=== PATIENT | female | born 1940 | race Caucasian/White ===

== ENCOUNTER 2020-11-15 13:57 | Outpatient (CLI) | payer MEDICARE, SELFPAY | END 2020-11-15 13:58 | disposition home or self-care (01) | LOC: ANHCOVIDVC 13:57 | DX: Z23 Encounter for immunization (principal) | CPT/HCPCS: 0001A; 91300 ==

== ENCOUNTER 2020-12-06 14:04 | Outpatient (CLI) | payer MEDICARE, SELFPAY | END 2020-12-06 14:05 | disposition home or self-care (01) | LOC: ANHCOVIDVC 14:04 | DX: Z23 Encounter for immunization (principal) | CPT/HCPCS: 0002A; 91300 ==

== ENCOUNTER 2021-02-17 20:41 | Inpatient (IN) | payer MEDICARE, SELFPAY ==
--- NOTE | ~2021-02-17 | CT_ITS ---
EXAMINATION: CT abdomen pelvis w con DATE: 02/20/2021 13:06 INDICATION: Diarrhea. Sepsis. TECHNIQUE: Computed tomography (CT) of the abdomen and pelvis was performed with 100 mL Omnipaque 350 intravenous contrast. Automated exposure control and iterative reconstruction technique were employe d. The dose-length product was 1109.87 mGy-cm. COMPARISON: CT abdomen and pelvis 07/02/2009 FINDINGS: The visualized portions of the lung bases demonstrate mild atelectasis. Calcified right valentino g nodules are consistent with old granulomatous disease. There are small pleural effusions. There is biatrial enlargement of the heart. No pericardial effusion. There are coronary artery calcifications. There is diffuse hepatic steatosis. There are changes of cholecystectomy. The spleen is normal. Ther e is an 11 mm cystic lesion in the body of pancreas. The pancreatic duct is mildly dilated. The adren al glands are normal. There are cysts in the kidneys measuring up to 8 mm on the left. There is diver ticulosis of the colon without evidence of diverticulitis. There are changes of ileocolic resection. There are two supraumbilical ventral hernias containing fat. There are no pathologically enlarged lym ph nodes. There is no free intraperitoneal fluid. There is a total right hip arthroplasty. There are chronic bilateral L5 pars defects. There is 8 mm anterolisthesis of L5 on S1. There is severe lower l umbar spondylosis. IMPRESSION: 1. Small pleural effusions. 2. 11 mm cystic lesion in the body of the pancreas, new from 07/02/09. The differential diagnosis inc ludes pseudocyst, intraductal papillary mucinous neoplasm (IPMN), mucinous cystic neoplasm (MCN), ser ous cystadenoma, and neuroendocrine tumor. Consider abdomen MRI without and with contrast in 2 years. Reviewed, dictated and finalized at location A. IMPRESSION: 1. Small pleural effusions. 2. 11 mm cystic lesion in the body of the pancreas, new from 07/02/09. The diff erential diagnosis includes pseudocyst, intraductal papillary mucinous neoplasm (IPMN), mucinous cystic neoplasm (MCN), serous cystadenoma, and neuroendocrine tumor. Consider abdomen MRI without and with contrast in 2 years.
--- NOTE | ~2021-02-17 | CT_ITS ---
EXAMINATION: CTA chest PE protocol DATE: 02/18/2021 00:54 INDICATION: Chest pain TECHNIQUE: Computed tomography (CT) pulmonary angiogram of the chest was performed with 100 mL Omnipa que-350 intravenous contrast. Additional 3D reconstructions utilizing coronal maximum intensity proje ction (MIP) were performed. Automated exposure control and iterative reconstruction technique were em ployed. The dose-length product was 2420.93 mGy-cm. COMPARISON: None FINDINGS: Good but suboptimal contrast opacification of the pulmonary arteries. Moderate to severe scattered re spiratory motion artifact most prominent at the apices and lung bases. Overall this decreases sensiti vity in the segmental pulmonary arteries and rendered is assessment in some of the smaller more perip heral subsegmental pulmonary arteries nondiagnostic. No . Pulmonary embolism identified. Mild depende nt atelectasis in the bilateral lower lobes. There are multiple <4 mm pulmonary nodules scattered thr oughout both lungs which appear primarily centrilobular and with peripheral predominance. Calcified n odule at the right lung base consistent with old granulomatous disease. No pulmonary edema, pleural e ffusion or pneumothorax. Cardiomegaly. Atherosclerotic coronary artery calcification is. No pericardi al effusion. Thoracic aorta is normal in caliber with no dissection. Unchanged mild enlargement of th e central pulmonary arteries consistent with pulmonary arterial hypertension. There is a dilated azyg os vein which can be seen with elevated right heart pressures. No pathologically enlarged thoracic ly mphadenopathy. Small sliding-type hiatal hernia. Cholecystectomy clips at the gallbladder fossa. Diff use hepatic steatosis. Mild thoracic dextrocurvature with mild spondylosis. IMPRESSION: 1. No pulmonary embolism with sensitivity decreased in the segmental and more central subsegmental pu lmonary arteries and essentially nondiagnostic in the smaller more peripheral subsegmental pulmonary arteries due primarily to respiratory motion artifact. 2. Numerous small centrilobular nodules of indeterminate chronicity scattered throughout both lungs w hich are most likely infectious or inflammatory in etiology. Would also include metastatic disease in the differential if there is been history of prior malignancy. 3. Cardiomegaly with unchanged enlargement of the central pulmonary arteries consistent with pulmonar y arterial hypertension. 4. Small sliding-type hiatal hernia.. Reviewed, dictated and finalized at location A. IMPRESSION: 1. No pulmonary embolism with sensitivity decreased in the segmental and more c entral subsegmental pulmonary arteries and essentially nondiagnostic in the sma ller more peripheral subsegmental pulmonary arteries due primarily to respirato ry motion artifact. 2. Numerous small centrilobular nodules of indeterminate chronicity scattered t hroughout both lungs which are most likely infectious or inflammatory in etiolo gy. Would also include metastatic disease in the differential if there is been history of prior malignancy. 3. Cardiomegaly with unchanged enlargement of the central pulmonary arteries co nsistent with pulmonary arterial hypertension. 4. Small sliding-type hiatal hernia..
--- NOTE | ~2021-02-17 | XR_ITS ---
EXAMINATION: XR chest 1V portable INDICATION: Leukocytosis and shortness of breath TECHNIQUE: Portable AP chest at 0803 hours COMPARISON: 02/18/2021 FINDINGS: The lungs are free of acute opacities. There is no pleural effusion or pneumothorax. Cardio megaly is noted. A calcified nodule of the right lower lobe is consistent with old granulomatous dise ase. IMPRESSION: 1. Stable cardiomegaly. Reviewed, dictated and finalized at location A. IMPRESSION: 1. Stable cardiomegaly.
--- NOTE | ~2021-02-17 | MR_ITS ---
EXAMINATION: MR brain/brain stem wo con DATE: 02/18/2021 13:13 INDICATION: Confusion. Right hemiparesis. TECHNIQUE: Magnetic resonance imaging (MRI) of the brain and brainstem was performed without intraven ous contrast. Sequences included sagittal and axial T1-weighted FSE, axial diffusion-weighted FS EPI, axial T2*-weighted GRE, axial T2-weighted FLAIR Propeller, and axial T2-weighted Propeller. Apparent diffusion coefficient (ADC) maps were created. COMPARISON: Head CT 02/17/2021 FINDINGS: There are scattered areas of nonspecific increased T2-weighted signal intensity in the cere bral white matter, lucie, and bilateral deep latif nuclei. There is no intracranial hemorrhage, acute i nfarction, or abnormal intracranial mass lesion. 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 The ventricles are normal in size. The paranasal sinuses are clear. There are likely changes of ocular l ens replacement surgeries. The mastoid air cells are normal. IMPRESSION: 1. Small old infarct in left cerebellum. 2. Extensive nonspecific cerebral white matter disease and disease involving the lucie and bilateral d eep latif nuclei, which likely represents chronic small vessel ischemic disease. Reviewed, dictated and finalized at location A. IMPRESSION: 1. Small old infarct in left cerebellum. 2. Extensive nonspecific cerebral white matter disease and disease involving th e lucie and bilateral deep latif nuclei, which likely represents chronic small ve ssel ischemic disease.
--- NOTE | ~2021-02-17 | US_ITS ---
EXAMINATION: US carotid duplex BI DATE: 02/18/2021 13:34 INDICATION: Stroke and carotid atherosclerosis and stenosis. TECHNIQUE: Grayscale, color Doppler, and pulsed Doppler images of the cervical carotid arteries were obtained. The degree of vessel stenosis is placed in one of the following categories: normal, <50%, 5 0-69%, >=70% but less than near-occlusion, near-occlusion, or total occlusion. Note that percent sten osis relative to normal distal artery lumen diameter is indirectly measured from velocity measurement s as described by Reji, et al. Radiology 2003; 229:340-346. COMPARISON: None. FINDINGS: RIGHT: The right common carotid artery (CCA) peak systolic velocity (PSV) is 76 cm/s. The right internal car otid artery (ICA) PSV is 73 cm/s. The right ICA end-diastolic velocity (EDV) is 16 cm/s. The right IC A/CCA PSV ratio is 1.0. Grayscale and color Doppler images yield an estimate of <50% diameter reducti on from plaque in the ICA. The external carotid artery (ECA) PSV is 91 cm/s. There is antegrade flow in the right vertebral artery. LEFT: The left CCA PSV is 66 cm/s. The left ICA PSV is 94 cm/s. The left ICA EDV is 13 cm/s. The left ICA/C CA PSV ratio is 1.4. Grayscale and color Doppler images yield an estimate of <50% diameter reduction from plaque in the ICA. The ECA PSV is 91 cm/s. There is antegrade flow in the left vertebral artery. IMPRESSION: 1. <50% stenosis in the right internal carotid artery. 2. <50% stenosis in the left internal carotid artery. 3. Cardiac arrhythmia is present. Reviewed, dictated and finalized at location A.
--- NOTE | ~2021-02-17 | XR_ITS ---
EXAMINATION: XR chest 1V DATE: 02/18/2021 00:52 INDICATION: Incidental alteration of awareness TECHNIQUE: frontal view of the chest was obtained. COMPARISON: Chest radiograph dated 05/13/2011 FINDINGS: Subtle reticulonodular pattern at the periphery of the right mid and upper lung zone and at the left lung base. Calcified nodule at the right lung base consistent with old granulomatous disease. No pleu ral effusion or pneumothorax. Cardiomegaly. Dilated azygos vein. Mild thoracic dextrocurvature with m ild spondylosis. IMPRESSION: 1. Subtle reticulonodular pattern at the left lung base and periphery of the right mid and upper lung zones. Differential would include pneumonia, either acute or chronic, or mild pulmonary edema. 2. Cardiomegaly Reviewed, dictated and finalized at location A. IMPRESSION: 1. Subtle reticulonodular pattern at the left lung base and periphery of the ri ght mid and upper lung zones. Differential would include pneumonia, either acut e or chronic, or mild pulmonary edema. 2. Cardiomegaly
--- NOTE | ~2021-02-17 | CT_ITS ---
EXAMINATION: CT brain wo con DATE: 02/17/2021 23:08 INDICATION: Confusion. Altered mental status. TECHNIQUE: Computed tomography (CT) of the head was performed without intravenous contrast. The mA wa s adjusted according to patient size. Iterative reconstruction technique was employed. The dose-lengt h product was 605.33 mGy-cm. COMPARISON: None FINDINGS: There are scattered areas of low attenuation in the cerebral white matter. There is no intr acranial hemorrhage, acute infarction, or abnormal intracranial mass lesion. The ventricles are jessica l in size. There are likely changes of ocular lens replacement surgeries. There is mild mucosal thick ening in the ethmoid sinuses. The mastoid air cells are normal. IMPRESSION: 1. Extensive nonspecific cerebral white matter disease, which likely represents chronic small vessel ischemic disease. Reviewed, dictated and finalized at location A.
[2021-02-17 20:50] VITALS: BP 158/100; PULSE 100; RESP 20; TEMP 37.7; O2SAT 92
--- NOTE | 2021-02-17 21:52 | PC.NURSE ---
Per family at bedside, pt called approx [phone] saying she had chest/back pain. Pt arrives A&Ox2, oriented to place and person. Family states this is not normal for pt. Pt c/o posterior neck pain at this time, denies chest/back pain.
[2021-02-17 22:05] VITALS: BP 129/66; PULSE 109; RESP 21; O2SAT 93
--- NOTE | 2021-02-17 22:10 | PC.NURSE ---
DESIRAE Nogueira made aware of pts change in mental status per family. VORB for CT of brain w/o contrast at this time.
[2021-02-17 22:50] VITALS: BP 141/61; PULSE 114; RESP 19; TEMP 38.3; O2SAT 95
[2021-02-17 22:51] VITALS: O2SAT 89
[2021-02-17 22:53] VITALS: O2SAT 93
--- NOTE | 2021-02-17 22:53 | ECG_ITS ---
Measurements Intervals [place] Rate: 121 P: NH: 0 QRS: 1 QRSD: 98 T: -42 QT: 338 QTc: 480 Interpretive Statements ATRIAL FIBRILLATION WITH RAPID VENTRICULAR RESPONSE NONSPECIFIC ST & T-WAVE ABNORMALITY- HIGH LATERAL LEADS BASELINE ARTIFACT- I, II, III, AVR, AVL, AVF, V1-V6 ABNORMAL ECG Electronically Signed On 02-18-2021 6:29:53 CDT by Iker Liu D.O.
[2021-02-17 23:39] LABS: Basophils Absolute Auto 0.1 K/mm3 (0.0-0.1); Basophils Percent Auto 0.4 % (0.2-1.2); Eosinophils Absolute Auto 0.1 K/mm3 (0-0.3); Eosinophils Percent Auto 0.5 % (0-4.4); Hematocrit 41.7 % (37.0-47.0); Hemoglobin 13.1 g/dL (12.0-15.0); Immature Granulocyte Absolute 0.06 K/mm3 (0.00-0.031); Immature Granulocyte Percent A 0.4 % (0-0.5); Lymphocytes Absolute Auto 0.92 K/mm3 (0.9-3.2); Lymphocytes Percent Auto 6.8 % (18.3-44.2); Mean Corpuscular HGB Conc 31.4 g/dl (32-36); Mean Corpuscular Hemoglobin 28.1 pg (26-34); Mean Corpuscular Volume 89.5 fl (80-100); Monocytes Absolute Auto 0.8 K/mm3 (0.1-0.6); Monocytes Percent Auto 5.7 % (2.6-8.5); Neutrophils Absolute Auto 11.7 K/mm3 (1.3-6.7); Neutrophils Percent Auto 86.2 % (45.5-73.1); Platelet Count Result 204 k/mm3 (150-375); Red Blood Count 4.66 M/mm3 (4.2-5.4); White Blood Count 13.6 K/mm3 (4.5-10.0)
[2021-02-17 23:49] LABS: Alanine Aminotransferase 64 U/L (4-35); Albumin Level 4.4 g/dL (3.5-5.1); Alkaline Phosphatase 105 U/L (38-126); Anion Gap 8 mmol/L (8-16); Aspartate Amino Transferase 78 U/L (14-36); Blood Urea Nitrogen 17 mg/dL (7-17); Calcium 9.3 mg/dL (8.4-10.2); Carbon Dioxide 34 mmol/L (22-30); Chloride 97 mmol/L (98-107); Estimated CRCL calculation 43 ml/min; Estimated Glomerular Filt Rate 53; Glucose 128 mg/dL (65-110); Potassium 4.1 mmol/L (3.4-5.0); Sodium 139 mmol/L (137-145)
[2021-02-17 23:51] LABS: Lactic Acid Reflex 1.1 mmol/L (0.7-2.1)
--- NOTE | 2021-02-17 23:54 | ED.GENADULT ---
HPI - General Adult General Chief complaint: Neck Pain/Injury Stated complaint: neck pain Time Seen by Provider: 02/17/21 23:36 Source: patient, family, EMS and RN notes reviewed Mode of arrival: EMS Limitations: altered mental status and clinical condition History of Present Illness HPI narrative: Patient is 81 years old white female lives alone, brought to the emergency room by ambulance with her daughter because of chest pain, back pain, confusion, abnormal speech, trouble talking on the phone. The daughter is telling me that the patient called her at 7:30 PM telling her that she been having chest pain and back pain today. When the daughter arrived to her house patient was confused, unable to speak clearly. Patient had history of intermittent diarrhea which she been having for the last few days, unknown number of episodes per day; after having colon resection years ago. History of hypertension, atrial fibrillation on Eliquis secondary to mitral valve regurgitation. Patient is DNR, been vaccinated for COVID-19. Patient does not take oxygen at home. Related Data Home Medications Medication Instructions Recorded Confirmed apixaban [Eliquis] mg 02/17/21 citalopram mg 02/17/21 diltiazem HCl 02/17/21 furosemide 02/17/21 metoprolol succinate PO 02/17/21 mirtazapine mg 02/17/21 oxycodone [OxyContin] mg PO 02/17/21 simvastatin mg 02/17/21 Allergies Allergy/AdvReac Type Severity Reaction Status Date / Time No Known Allergies Allergy Unknown Verified 02/17/21 23:39 Review of Systems Review of Systems: ROS unobtainable: Yes unobtainable due to medical condition PMFSH Social History Social History Gender identity (if verbalized by the patient): Female Exam Narrative: General appearance: Well-developed, well-nourished, laying down in bed, looks confused, Skin: Normal color Head: Normocephalic, nontraumatic Eyes: Clear conjunctiva ENT: Severe dryness of the oral cavity Neck: Supple, nontender Chest and respiratory: Airway patent, no respiratory distress, no accessory muscle use Heart: Regular rate/rhythm Abdomen: Soft, nontender, no organomegaly, quiet bowel sounds Vascular: Normal peripheral pulses, normal capillary refill. Musculoskeletal: Patient unable to move the right lower extremity compared to the left 1 Neurologic: Alert and oriented to her name only Course Course Emergency Course: Stable Vital Signs Vital signs: Vital Signs Temperature 37.7 C H 02/17/21 20:50 Pulse Rate 100 02/17/21 20:50 Respiratory Rate 20 02/17/21 20:50 Blood Pressure 158/100 H 02/17/21 20:50 Pulse Oximetry 92 02/17/21 20:50 Temperature 38.3 C H 02/17/21 22:50 Pulse Rate 112 H 02/18/21 01:06 Respiratory Rate 20 02/18/21 01:06 Blood Pressure 127/75 02/18/21 01:06 Pulse Oximetry 94 02/18/21 01:06 Medical Decision Making Vital Signs Vital Signs: Vital Signs Temperature 37.7 C H 02/17/21 20:50 Pulse Rate 100 02/17/21 20:50 Respiratory Rate 20 02/17/21 20:50 Blood Pressure 158/100 H 02/17/21 20:50 Pulse Oximetry 92 02/17/21 20:50 Temperature 38.3 C H 02/17/21 22:50 Pulse Rate 112 H 02/18/21 01:06 Respiratory Rate 20 02/18/21 01:06 Blood Pressure 127/75 02/18/21 01:06 Pulse Oximetry 94 02/18/21 01:06 Lab Data Result diagrams: 02/17/21 23:33 02/17/21 23:33 Labs: Lab Results 02/17/21 02/17/21 02/17/21 Range/Units 23:32 23:32 23:33 WBC 13.6 H (4.5-10.0) K/mm3 RBC 4.66 (4.2-5.4) M/mm3 Hgb 13.1 (12.0-15.0) g/dL Hct 41.7 (37.0-47.0) % MCV 89.5 (80-100) fl MCH
[2021-02-18] VITALS (12 sets, daily range): BP systolic 104–131; BP diastolic 54–97; PULSE 77–117; RESP 18–24; TEMP 36.2–37.1; O2SAT 94–98; BMI 33.3
[2021-02-18 00:09] LABS: INR 1.3; Prothrombin Time 15.6 Seconds (11.1-14.7)
[2021-02-18 00:10] LABS: Partial Thromboplastin Time 30.8 SECONDS (22.3-36.8)
[2021-02-18 00:12] LABS: D Dimer 0.77 ug/mL (<0.48)
[2021-02-18] MEDS: SODIUM CHLORIDE 0.9% IV 1,000 ML 999 ML IV CONT (00:16)
[2021-02-18 00:39] LABS: Alveolar/Arterial O2 Gradient 41.2 mmHg; Base Excess ABG 3.3 mEq/l (+/-2.0); Fractional Inspired Oxygen 21 %; HCO3 ABG 29.2 mEq/l (22.0-26.0); Oxygen Content ABG 15.7 %vol (16.0-22.0); Oxyhemoglobin 84.8 % THb (90.0-100.0); PCO2 ABG 49.5 mmHg (35.0-45.0); PO2 FiO2 Ratio Arterial Blood 2.35 %; Total Hemoglobin 13.2 g/dL (12.0-18.0); pH ABG 7.388 (7.350-7.450)
[2021-02-18 00:41] LABS: Add Urine Microscopic? YES; Appearance Urine Clear (Clear); Bilirubin Urine Negative (Negative); Blood Urine Negative (Negative); Color Urine Yellow (Yellow); Glucose Urine UA Negative (Negative); Ketones Urine Negative (Negative); Leukocyte Esterase Ur Trace LEU/UL (Negative); Mucus Urine Rare /lpf; Nitrate Urine Positive (Negative); Protein Urine Negative (Negative); RBC Urine 0-2 /hpf (0-2); Urobilinogen Urine Negative mg/dL (<2.0)
[2021-02-18 00:42] LABS: PO2 ABG 49.3 mmHg (80.0-100.0)
[2021-02-18 00:43] LABS: Device ROOM AIR; Modified Allen's Test Pass; Site Drawn RIGHT RADIAL
[2021-02-18 01:04] LABS: Troponin I < 0.012 ng/mL (0.000-0.034)
--- NOTE | 2021-02-18 01:20 | PC.NURSE ---
Pt A&Ox1 at this time, oriented to person. Able to follow commands. EDP notified.
--- NOTE | 2021-02-18 02:27 | PM.IMHP ---
H&P: HPI History of Present Illness Date/Time: 02/18/21 02:27 Chief Complaint: confusion Narrative: Patient is 81 years old who lives alone presented to the ED via ambulance with her daughter because of altered mental status abnormal speech and trouble talking on the phone. EMS was called for chest pain however patient denied any chest pain upon arrival to the scene. The daughter states that she has been noted to be more confused today and her speech was not that clear and hence was brought to the ED. Apparently she had been having diarrhea for past few days which is a chronic problem since of colon resection years ago. She gets recurrent bouts of diarrhea was resolves on its own. She has a history of hypertension atrial fibrillation on Eliquis secondary to mitral valve regurgitation. Patient was noted to be mildly hypoxic in the ED and was placed on 2 L oxygen nasal cannula she however denies any chest pain or shortness of breath or any cough related symptoms. She is noted to be slightly weaker on the right side which is new per daughter. She does not use oxygen at home as well. In the ED she was noted to be high tachycardic. Chest x-ray was done which is reported to be no acute abnormality. With hypoxia CTA was done which showed no PE or pneumonia or pneumothorax. She had mild leukocytosis at 13,000. D-dimer was elevated 0.77 urine was positive for urinary tract infection. CT head was negative for any acute abnormality but reports extensive nonspecific cerebral white matter disease was likely represents chronic small-vessel ischemic disease. Review of Systems Review of Systems: - CONSTITUTIONAL: Denies weight loss, fever and chills. Reports feverish - HEENT: Denies changes in vision and hearing - RESPIRATORY: Denies SOB and cough. - CV: Denies palpitations and CP. - GI: Denies abdominal pain, nausea, vomiting and reports diarrhea - : Denies dysuria and urinary frequency. - MSK: Denies myalgia and joint pain. - SKIN: Denies rash and pruritus. - NEUROLOGICAL: Denies headache and syncope. reports confusion - PSYCHIATRIC: Denies recent changes in mood. Denies anxiety and depression. All systems reviewed & are unremarkable except as noted in HPI and below Constitutional: Constitutional: Reports fatigue and Reports weakness Neurologic: Reports weakness Endocrine: Endocrine: Reports fatigue [facility] Social History Social History Gender identity (if verbalized by the patient): Female Meds Home Medications and Allergies Home Medications Medication Instructions Recorded Confirmed Type alprazolam 0.5 mg tablet 0.5 mg PO QID #120 tablet 01/27/21 Rx oxycodone 20 mg tablet,crush 20 mg PO BID #60 tablet 02/10/21 Rx resistant,extended release 12 hr oxycodone 5 mg capsule 5 mg PO Q12H PRN #30 cap 02/10/21 Rx apixaban [Eliquis] mg 02/17/21 History citalopram mg 02/17/21 History diltiazem HCl 02/17/21 History furosemide 02/17/21 History metoprolol succinate PO 02/17/21 History mirtazapine mg 02/17/21 History oxycodone [OxyContin] mg PO 02/17/21 History simvastatin mg 02/17/21 History Allergies Allergy/AdvReac Type Severity Reaction Status Date / Time No Known Allergies Allergy Unknown Verified 02/17/21 23:39 Vital Signs Vital Signs - 24 hr 02/17/21 20:50 02/17/21 22:05 02/17/21 22:50 Temperature 100 F H 100.9 F H Pulse Rate 100 109 H 114 H Respiratory Rate 20 21 H 19 Blood Pressure 158/100 H 129/66 141/61 H Pulse Oximetry 92 93 95 02/17/21 22:51 02/17/21 22:53 02/18/21 01:06 Temperature Pulse Rate 112 H Respiratory Rate 20 Blood Pressure 127/75 Pulse Oximetry 89 L 93 94 Exam Narrative: General appearance: Well-developed, well-nourished, laying down in bed, looks confused, restless, Skin: Normal color no rash Head: Normocephalic, nontraumatic Eyes: Clear conjunctiva PERRLA ENT: dry mucous membrane N
[2021-02-18 03:11] LABS: Troponin I < 0.012 ng/mL (0.000-0.034)
[2021-02-18 03:23] LABS: CRP 1.7 mg/dL (<1.0)
--- NOTE | 2021-02-18 03:46 | PC.NURSE ---
This patient, Bre Moya, was admitted to [facility] S[facility] Room 304-01. Patient/family oriented to hospital policies and general routines including ID bracelet, bed and alarms, visiting hours, pain management, procedures, bathroom and other care routines, personal items, smoking policy, room service/diet, and visiting hours. Information on how to activate the Rapid Response Team has been discussed. Patient/Family are encouraged to report perceived risks to care and to ask questions if they do not understand what they are told or what they should do.
[2021-02-18] MEDS: SODIUM CHLORIDE 0.9% IV 1,000 ML 100 ML IV CONT ×2 (06:27→23:58)
[2021-02-18 06:36] LABS: Troponin I < 0.012 ng/mL (0.000-0.034)
[2021-02-18] MEDS: MIRTAZAPINE 7.5 MG TABLET PO (08:17)
[2021-02-18] MEDS: METOPROLOL SUCCINATE EXT REL 50 MG TABCR PO ×2 (08:17→17:56)
[2021-02-18] MEDS: APIXABAN 5 MG TABLET PO (08:17)
[2021-02-18] MEDS: CITALOPRAM HYDROBROMIDE 10 MG TABLET 40 MG PO (08:17)
[2021-02-18] MEDS: dilTIAZem HCL 60 MG TABLET 120 MG PO (10:54)
--- NOTE | 2021-02-18 14:14 | P.PNIM_ITS ---
Progress Note: A&P Assessment and Plan (1) Acute encephalopathy: Code(s): G93.40 - Encephalopathy, unspecified Status: Acute Assessment and Plan: * UA was suspicious of a UTI * CT the head was negative for any abnormalities but shows nonspecific cerebral white matter disease * brain MRI is pending * carotid Doppler are pending as well * white count was 13.6 * ceftriaxone 1 g Q 24 * urine cultures pending * tailor antibiotics urine culture * deescalate antibiotics when possible * trend labs * labs in a.m. (2) Diarrhea: Qualifiers: Diarrhea type: unspecified type Qualified Code(s): R19.7 - Diarrhea, unspecified Code(s): R19.7 - Diarrhea, unspecified Status: Acute Assessment and Plan: * started last Wednesday * patient stated that she has history of this * patient has been taking Imodium and bananas to help control * monitor fluid status * sodium chloride 100 mils an hour * encourage p.o. intake * stool cultures ordered (3) Urinary tract infection: Qualifiers: Hematuria presence: without hematuria Urinary tract infection type: site unspecified Qualified Code(s): N39.0 - Urinary tract infection, site not specified Code(s): N39.0 - Urinary tract infection, site not specified Status: Acute Assessment and Plan: * UA is suspicious of a UTI: Urine was clear with positive nitrates trace leukocyte esterase and wbc's of 10-15 * ceftriaxone 1 g Q 24 was started on the patient * urine culture pending * white blood cell count is 13.6 * BUN creatinine is 17/1 * trend WBCs * labs in a.m. (4) Atrial fibrillation with RVR: Code(s): I48.91 - Unspecified atrial fibrillation Status: Acute Assessment and Plan: * patient has a history * EKG shows AFib with RVR with a rate of 121 * echo pending * daughter stated that this is probably due to the tear in the mitral valve which she has 50% regurg * tele monitor * current heart rate 110 * continue patient's Cardizem 120 mg p.o. daily, Eliquis 5 mg p.o. daily (5) Sepsis: Code(s): A41.9 - Sepsis, unspecified organism Status: Acute Assessment and Plan: * vital signs upon admission is temperature of 37.7?, a pulse rate of 100, respiratory rate of 21, a blood pressure of 158/100, O2 sat 92% on room air * patient did note to be 89% on room air a couple hours later * white blood cell count is 13.6 * lactic acid 1.1 * source of infection could be UTI * patient started on Rocephin 1 g Q 24 * patient got 1 L of fluids in the ED * sodium chloride 100 mils per hour * trend labs * labs in a.m. * seems to be resolved (6) Lumbago: Code(s): M54.5 - Low back pain Status: Acute (7) Anxiety: Code(s): F41.9 - Anxiety disorder, unspecified Status: Acute Assessment and Plan: * continue patient's Celexa 40 mg p.o. daily, Remeron 7.5 mg p.o. daily * will hold Xanax for now (8) HTN (hypertension): Code(s): I10 - Essential (primary) hypertension Status: Acute Assessment and Plan: * current blood pressure 104/58 * systolic blood pressure runs between 101-160 diastolic pressure runs from 60-100 * patient does have home furosemide 80 mg p.o. daily however on hold currently for fluid status * continue Cardizem 120 mg p.o. daily
--- NOTE | 2021-02-18 14:14 | PM.IMPN ---
Progress Note: A&P Assessment and Plan (1) Acute encephalopathy: Code(s): G93.40 - Encephalopathy, unspecified Status: Acute Assessment and Plan: UA was suspicious of a UTI CT the head was negative for any abnormalities but shows nonspecific cerebral white matter disease brain MRI is pending carotid Doppler are pending as well white count was 13.6 ceftriaxone 1 g Q 24 urine cultures pending tailor antibiotics urine culture deescalate antibiotics when possible trend labs labs in a.m. (2) Diarrhea: Qualifiers: Diarrhea type: unspecified type Qualified Code(s): R19.7 - Diarrhea, unspecified Code(s): R19.7 - Diarrhea, unspecified Status: Acute Assessment and Plan: started last Wednesday patient stated that she has history of this patient has been taking Imodium and bananas to help control monitor fluid status sodium chloride 100 mils an hour encourage p.o. intake stool cultures ordered (3) Urinary tract infection: Qualifiers: Hematuria presence: without hematuria Urinary tract infection type: site unspecified Qualified Code(s): N39.0 - Urinary tract infection, site not specified Code(s): N39.0 - Urinary tract infection, site not specified Status: Acute Assessment and Plan: UA is suspicious of a UTI: Urine was clear with positive nitrates trace leukocyte esterase and wbc's of 10-15 ceftriaxone 1 g Q 24 was started on the patient urine culture pending white blood cell count is 13.6 BUN creatinine is 17/1 trend WBCs labs in a.m. 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 daily, Eliquis 5 mg p.o. daily (5) Sepsis: Code(s): A41.9 - Sepsis, unspecified organism Status: Acute Assessment and Plan: vital signs upon admission is temperature of 37.7?, a pulse rate of 100, respiratory rate of 21, a blood pressure of 158/100, O2 sat 92% on room air patient did note to be 89% on room air a couple hours later white blood cell count is 13.6 lactic acid 1.1 source of infection could be UTI patient started on Rocephin 1 g Q 24 patient got 1 L of fluids in the ED sodium chloride 100 mils per hour trend labs labs in a.m. seems to be resolved (6) Lumbago: Code(s): M54.5 - Low back pain Status: Acute (7) Anxiety: Code(s): F41.9 - Anxiety disorder, unspecified Status: Acute Assessment and Plan: continue patient's Celexa 40 mg p.o. daily, Remeron 7.5 mg p.o. daily will hold Xanax for now (8) HTN (hypertension): Code(s): I10 - Essential (primary) hypertension Status: Acute Assessment and Plan: current blood pressure 104/58 systolic blood pressure runs between 101-160 diastolic pressure runs from 60-100 patient does have home furosemide 80 mg p.o. daily however on hold currently for fluid status continue Cardizem 120 mg p.o. daily trend blood pressure adjust medications as needed (9) Hyperlipidemia: Code(s): E78.5 - Hyperlipidemia, unspecified Status: Acute Assessment and Plan: continue home simvastatin 20 mg p.o. daily considered lipid panel adjust medications as needed (10) CVA (cerebral vascular accident): Code(s): I63.9 - Cerebral infarction, unspecified Status: Acute Assessment and Plan: it was reported patient had altered mental status, abnormal speech, chest pain patient also has severe regurg of the mi
[2021-02-18] MEDS: SIMVASTATIN 20 MG TABLET PO (17:56)
[2021-02-19] VITALS (12 sets, daily range): BP systolic 135–140; BP diastolic 65–76; PULSE 73–134; RESP 18–20; TEMP 36–36.7; O2SAT 96–99
[2021-02-19 06:47] LABS: Basophils Percent Auto 0.4 % (0.2-1.2); Eosinophils Absolute Auto 0.1 K/mm3 (0-0.3); Eosinophils Percent Auto 0.6 % (0-4.4); Hematocrit 37.4 % (37.0-47.0); Hemoglobin 11.8 g/dL (12.0-15.0); Immature Granulocyte Absolute 0.08 K/mm3 (0.00-0.031); Immature Granulocyte Percent A 0.8 % (0-0.5); Lymphocytes Absolute Auto 1.78 K/mm3 (0.9-3.2); Lymphocytes Percent Auto 16.7 % (18.3-44.2); Mean Corpuscular HGB Conc 31.6 g/dl (32-36); Mean Corpuscular Hemoglobin 27.9 pg (26-34); Mean Corpuscular Volume 88.4 fl (80-100); Monocytes Absolute Auto 0.7 K/mm3 (0.1-0.6); Monocytes Percent Auto 6.8 % (2.6-8.5); Neutrophils Percent Auto 74.7 % (45.5-73.1); Platelet Count Result 172 k/mm3 (150-375); Red Blood Count 4.23 M/mm3 (4.2-5.4); White Blood Count 10.7 K/mm3 (4.5-10.0)
[2021-02-19 07:00] LABS: Alanine Aminotransferase 33 U/L (4-35); Albumin Level 3.3 g/dL (3.5-5.1); Alkaline Phosphatase 82 U/L (38-126); Anion Gap 8 mmol/L (8-16); Aspartate Amino Transferase 32 U/L (14-36); Bilirubin,Total 1.6 mg/dL (0.2-1.3); Blood Urea Nitrogen 13 mg/dL (7-17); Carbon Dioxide 25 mmol/L (22-30); Chloride 106 mmol/L (98-107); Cholesterol 108 mg/dL (0-200); Estimated CRCL calculation 61 ml/min; Estimated Glomerular Filt Rate > 60; Glucose 107 mg/dL (65-110); HDL Direct 61 mg/dL; Magnesium 2.1 mg/dL (1.6-2.3); Potassium 3.1 mmol/L (3.4-5.0); Sodium 139 mmol/L (137-145); Triglycerides 69 mg/dL (<150)
[2021-02-19 07:11] LABS: LDL Cholesterol Direct 34 mg/dL
[2021-02-19] MEDS: METOPROLOL SUCCINATE EXT REL 50 MG TABCR PO ×2 (09:06→17:08)
[2021-02-19] MEDS: CITALOPRAM HYDROBROMIDE 10 MG TABLET 40 MG PO (09:06)
[2021-02-19] MEDS: APIXABAN 5 MG TABLET PO (09:06)
[2021-02-19] MEDS: MIRTAZAPINE 7.5 MG TABLET PO (09:06)
[2021-02-19] MEDS: dilTIAZem HCL 60 MG TABLET 120 MG PO (09:06)
[2021-02-19] MEDS: ASPIRIN 81 MG ENTERIC TABLET PO (09:09)
[2021-02-19] MEDS: POTASSIUM CHLORIDE 20 MEQ TABLET 40 MEQ PO (10:29)
--- NOTE | 2021-02-19 11:37 | PM.IMPN ---
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 - no neurological deficits on exam. There is a history of upper extremity weakness that has apparently improved. (2) Diarrhea: Qualifiers: Diarrhea type: unspecified type Qualified Code(s): R19.7 - Diarrhea, unspecified Code(s): R19.7 - Diarrhea, unspecified Status: Acute Assessment and Plan: patient tells me this has been going on for 3 months - she has a history of cecal cancer and has seen Dr. Al in the past - last colonoscopy that I can see was 2011 and patient unsure when her last 1 was - will draw CEA and consult GI - await stool cultures, these were finally collected this morning - C diff less likely, white blood cell count improving (3) Urinary tract infection: Qualifiers: Hematuria presence: without hematuria Urinary tract infection type: site unspecified Qualified Code(s): N39.0 - Urinary tract infection, site not specified Code(s): N39.0 - Urinary tract infection, site not specified Status: Acute Assessment and Plan: E coli confirmed UTI - continue ceftriaxone (4) Atrial fibrillation with RVR: Code(s): I48.91 - Unspecified atrial fibrillation Status: Acute Assessment and Plan: current rate 102 but was tachycardic earlier this morning. likely due to diarrhea and infection - continue Cardizem 120 mg p.o. 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 daily, Remeron 7.5 mg p.o. daily (8) HTN (hypertension): Code(s): I10 - Essential (primary) hypertension Status: Acute Assessment and Plan: last blood pressure 135/73 - continue metoprolol and Cardizem - continue to hold home furosemide 80 mg daily but monitor fluid status closely. She continues to have multiple episodes of diarrhea and clear lungs today, continue IV fluids (9) Hyperlipidemia: Code(s): E78.5 - Hyperlipidemia, unspecified Status: Acute Assessment and Plan: chronic, continuehome simvastatin 20 mg p.o. daily (10) Dehydration: Code(s): E86.0 - Dehydration Status: Acute Assessment and Plan: improving - continue IV fluids and holding furosemide. Monitor fluid status closely. No crackles today Subjective Date/time seen: 02/19/21 11:37 Interval history: patient is an 81-year-old female here for diarrhea, UTI and possible pneumonia. Patient was seen today and is confused but does answer some questions. She said that she had colon cancer at some point in her life but cannot tell me the year. She said it was surgically resected. She says she continues to have diarrhea and she has had this diarrhea for over 3 months. She actually came into the hospital due to chest pa
[2021-02-19 12:35] LABS: Carcinoembryonic Antigen 1.4 ng/mL (0.0-3.0)
[2021-02-19] MEDS: SODIUM CHLORIDE 0.9% IV 1,000 ML 100 ML IV CONT (13:09)
--- NOTE | 2021-02-19 15:01 | WPDGICN ---
Assessment and Plan Assessment and plan (1) Diarrhea: Qualifiers: Diarrhea type: unspecified type Qualified Code(s): R19.7 - Diarrhea, unspecified Code(s): R19.7 - Diarrhea, unspecified Status: Acute Assessment and Plan: Patient gives a history of rather severe diarrhea alternating with constipation for the last 4 months. Most recent bout of diarrhea started 3 or 4 days ago. Plan to add fiber supplements for possible irritable bowel syndrome. Stool cultures are pending. If diarrhea fails to improve then colonoscopy may be required. Particularly given her history of colon cancer. If this is necessary holding anticoagulation would be preferable. Will need to get clearance from Cardiology prior to holding Eliquis. (2) History of colon cancer: Code(s): Z85.038 - Personal history of other malignant neoplasm of large intestine Status: Acute Assessment and Plan: Patient has a history of colon cancer diagnosed 2007. Most recent colonoscopy 2015 unremarkable. Screening colonoscopy also to evaluate for her diarrhea is suggested after she is strong enough and a low bit more stable. (3) Urinary tract infection: Qualifiers: Hematuria presence: without hematuria Urinary tract infection type: site unspecified Qualified Code(s): N39.0 - Urinary tract infection, site not specified Code(s): N39.0 - Urinary tract infection, site not specified Status: Acute (4) Atrial fibrillation with RVR: Code(s): I48.91 - Unspecified atrial fibrillation Status: Acute Assessment and Plan: Patient anticoagulated because of atrial fibrillation. Currently this appears stable however anticoagulation may need to be held if colonoscopy is to be performed. (5) Abnormal CT scan: Code(s): R93.89 - Abnormal findings on diagnostic imaging of other specified body structures Status: Acute Assessment and Plan: CT scan raises the question of several lesions scattered throughout the lung. These appear to be nonspecific. Agree with follow-up CT scan is suggested by Radiology. CEA level has been ordered which is appears prudent. Etiology of these spots remain on clear will need to be followed. GI Consult Note Consult date/time: 02/19/21 15:01 HPI: Bre Ding is a 81 year old female Seen in evaluation because of diarrhea and history of colon cancer. Patient has a history of colon cancer initially identified 2007. Most recent colonoscopy 2014 revealed well-healed anastomosis and no evidence of disease. patient reports intermittent diarrhea since her colon resection. However over the last 4 months is worsened. She will have diarrhea alternating with constipation. She sometimes has rather severe diarrhea lasting for several days according to her daughter. She denies any bleeding. She has had no weight loss. She states stools are sticky. Often she will be constipated between episodes of diarrhea. Patient did develop some chest pain and for this reason went to the emergency room several days ago. In the ER she was identified as having a urinary tract infection. Patient has a past medical history of mitral valve tear. She has atrial fibrillation is on chronic Eliquis anticoagulation. CT scan of the chest was performed in several small spots were noted throughout her lung that her nondescript of uncertain etiology. Stool cultures were obtained just Today. Patient remains anticoagulated. Review of Systems Review of Systems: All systems reviewed & are unremarkable except as noted in HPI and below PMFSH Social History Social History Smoking status: Never smoker Alcohol intake: never Substance use: never Gender identity (if verbalized by the patient): Female Spiritual care concerns: No Meds Home Medications and Allergies Home Medications Medication Instructions Recorde
[2021-02-19] MEDS: calcium polycarbophiL 625 MG TABLET 1250 MG PO (17:07)
[2021-02-19] MEDS: SIMVASTATIN 20 MG TABLET PO (17:07)
[2021-02-19] MEDS: ALPRAZolam (*CRX) 0.25 MG TABLET PO (17:58)
[2021-02-20] VITALS (11 sets, daily range): BP systolic 129–152; BP diastolic 66–86; PULSE 105–139; RESP 18; TEMP 36.1–36.8; O2SAT 96–97
[2021-02-20] MEDS: ALPRAZolam (*CRX) 0.25 MG TABLET PO ×2 (03:28→20:24)
[2021-02-20] MEDS: SODIUM CHLORIDE 0.9% IV 1,000 ML 100 ML IV CONT ×3 (06:03→18:43)
[2021-02-20 07:02] LABS: Basophils Absolute Auto 0.1 K/mm3 (0.0-0.1); Basophils Percent Auto 0.4 % (0.2-1.2); Eosinophils Absolute Auto 0.1 K/mm3 (0-0.3); Eosinophils Percent Auto 0.6 % (0-4.4); Hematocrit 37.5 % (37.0-47.0); Immature Granulocyte Absolute 0.13 K/mm3 (0.00-0.031); Immature Granulocyte Percent A 0.9 % (0-0.5); Lymphocytes Absolute Auto 1.73 K/mm3 (0.9-3.2); Lymphocytes Percent Auto 11.9 % (18.3-44.2); Mean Corpuscular Hemoglobin 27.5 pg (26-34); Mean Platelet Volume 10.4 fl (7.4-10.4); Monocytes Absolute Auto 0.9 K/mm3 (0.1-0.6); Monocytes Percent Auto 6.1 % (2.6-8.5); Neutrophils Absolute Auto 11.6 K/mm3 (1.3-6.7); Neutrophils Percent Auto 80.1 % (45.5-73.1); Platelet Count Result 199 k/mm3 (150-375); Red Blood Count 4.36 M/mm3 (4.2-5.4); Red Cell Distribution Width 14.6 % (11.5-14.5); White Blood Count 14.5 K/mm3 (4.5-10.0)
--- NOTE | 2021-02-20 07:07 | WPDGIPROGNO ---
Progress Note: A&P Assessment and Plan (1) Diarrhea: Qualifiers: Diarrhea type: unspecified type Qualified Code(s): R19.7 - Diarrhea, unspecified Code(s): R19.7 - Diarrhea, unspecified Status: Acute Assessment and Plan: Diarrhea peers improved. Suspect this may be irritable bowel syndrome. Continuing fiber supplements appears prudent. Stool cultures are obtained and pending at this time. (2) History of colon cancer: Code(s): Z85.038 - Personal history of other malignant neoplasm of large intestine Status: Acute Assessment and Plan: Patient alert and oriented. Comfortable at present. Last screening colonoscopy 2014. Plan to consider repeat screening colonoscopy when she is stable. This can be performed as an outpatient. CEA level is noted to be normal at 1.4. (3) Atrial fibrillation with RVR: Code(s): I48.91 - Unspecified atrial fibrillation Status: Acute Assessment and Plan: Patient on Eliquis anticoagulation because of atrial fibrillation. This will need to be held at the time of colonoscopy (4) Abnormal CT scan: Code(s): R93.89 - Abnormal findings on diagnostic imaging of other specified body structures Status: Acute Assessment and Plan: several lesions identified throughout the lungs on CT scan appear to be nonspecific. These will need follow-up CT scanning at some point. (5) Urinary tract infection: Qualifiers: Hematuria presence: without hematuria Urinary tract infection type: site unspecified Qualified Code(s): N39.0 - Urinary tract infection, site not specified Code(s): N39.0 - Urinary tract infection, site not specified Status: Acute Assessment and Plan: Patient currently being treated for UTI. Her confusion has improved along with this treatment. Subjective Date/time seen: 02/20/21 07:07 Patient slept well last night. States she is feeling much better. Reports bowel movements are less sticky. No significant diarrhea overnight. She states her urine even appears clear. Review of Systems Review of Systems: All systems reviewed & are unremarkable except as noted in HPI and below Exam Narrative: Physical exam reveals patient be more alert and oriented. Lungs are clear to auscultation and percussion. Heart is without murmur or extra sounds. Abdominal exam bowel sounds are present soft nontender with no organomegaly. Objective Data Vital Signs Vital Signs: Vital Signs - 24 hr 02/19/21 08:00 02/19/21 09:06 02/19/21 12:00 Temperature Pulse Rate 119 H 122 H 110 H Respiratory Rate Blood Pressure Pulse Oximetry 02/19/21 14:00 02/19/21 15:00 02/19/21 16:00 Temperature 98.0 F Pulse Rate 101 H 96 Respiratory Rate 18 Blood Pressure 136/65 Pulse Oximetry 96 96 02/19/21 17:08 02/19/21 20:00 02/19/21 21:18 Temperature 96.8 F L Pulse Rate 121 H 121 H 112 H Respiratory Rate 18 Blood Pressure 140/76 Pulse Oximetry 97 02/20/21 00:00 02/20/21 04:00 02/20/21 05:55 Temperature 97.0 F L Pulse Rate 128 H 128 H 126 H Respiratory Rate 18 Blood Pressure 152/86 H Pulse Oximetry 97 Intake/Output Intake/Output: Intake & Output 02/17/21 02/18/21 02/19/21 02/20/21 23:59 23:59 23:59 23:59 Intake Total 2275 3720 250 Balance 2275 3720 250 Meds/Results Medications: Active Medications Generic Name Dose Route Start Last Admin Trade Name Freq PRN Reason Stop Dose Admin Alprazolam 0.25 mg 02/19/21 17:36 02/20/21 03:28 Alprazolam (*Crx) 0.25 Mg Tablet PO 0.25 mg TID PRN Administration Anxiety Apixaban 5 mg 02/18/21 09:00 02/19/21 09:06 Apixaban 5 Mg Tablet PO 5 mg DAILY JOSE Administration Aspirin 81 mg 02/19/21 09:00 02/19/21 09:09 Aspirin 81 Mg Enteric Tablet PO 81 mg QAM JOSE Administration Calcium Polycarbophil 1,250 mg 02/19/21 17:00 02/19/21 17:07 Calcium Polycarbophil 625
[2021-02-20 07:21] LABS: Anion Gap 7 mmol/L (8-16); Blood Urea Nitrogen 11 mg/dL (7-17); Carbon Dioxide 21 mmol/L (22-30); Chloride 111 mmol/L (98-107); Estimated CRCL calculation 70 ml/min; Estimated Glomerular Filt Rate > 60; Glucose 125 mg/dL (65-110); Potassium 3.2 mmol/L (3.4-5.0); Sodium 139 mmol/L (137-145)
[2021-02-20] MEDS: ASPIRIN 81 MG ENTERIC TABLET PO (08:03)
[2021-02-20] MEDS: dilTIAZem HCL 60 MG TABLET 120 MG PO (08:03)
[2021-02-20] MEDS: APIXABAN 5 MG TABLET PO ×2 (08:03→20:24)
[2021-02-20] MEDS: MIRTAZAPINE 7.5 MG TABLET PO (08:04)
[2021-02-20] MEDS: METOPROLOL SUCCINATE EXT REL 50 MG TABCR PO ×2 (08:04→18:38)
[2021-02-20] MEDS: calcium polycarbophiL 625 MG TABLET 1250 MG PO ×2 (08:04→18:39)
[2021-02-20] MEDS: CITALOPRAM HYDROBROMIDE 10 MG TABLET 40 MG PO (08:04)
--- NOTE | 2021-02-20 09:57 | P.CDI_ITS ---
CDI Query Clarification Request -Acute encephalopathy, likely due to UTI and diarrhea has been documented Please further clarify type of acute encephalopathy: * Metabolic * Toxic * Other * Unable to determine
--- NOTE | 2021-02-20 09:57 | WPDCDIQUERY2 ---
CDI Query Clarification Request -Acute encephalopathy, likely due to UTI and diarrhea has been documented Please further clarify type of acute encephalopathy: Metabolic Toxic Other Unable to determine
[2021-02-20] MEDS: POTASSIUM CHLORIDE 20 MEQ TABLET 40 MEQ PO (12:18)
--- NOTE | 2021-02-20 13:17 | PM.IMPN ---
Progress Note: A&P Assessment and Plan (1) Acute encephalopathy: Code(s): G93.40 - Encephalopathy, unspecified Status: Acute Assessment and Plan: Persistent and seems a little worse. Likely due to UTI but concerning it has not improved yet. It is day 3 of abx, should improve soon. 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 - no neurological deficits on exam. There is a history of upper extremity weakness that has apparently improved. -obtain abd/pelvic CT -xanax added yesterday (takes at home) and will do PRN oxycodone but hold off on scheduling oxycontin -await blood cultures (2) Diarrhea: Qualifiers: Diarrhea type: unspecified type Qualified Code(s): R19.7 - Diarrhea, unspecified Code(s): R19.7 - Diarrhea, unspecified Status: Acute Assessment and Plan: patient tells me this has been going on for 3 months - she has a history of cecal cancer and has seen Dr. Al in the past - last colonoscopy that I can see was 2011 -CEA normal - await stool cultures, these were finally collected 02/19/21 - C diff less likely, white blood cell count improving (3) Urinary tract infection: Qualifiers: Hematuria presence: without hematuria Urinary tract infection type: site unspecified Qualified Code(s): N39.0 - Urinary tract infection, site not specified Code(s): N39.0 - Urinary tract infection, site not specified Status: Acute Assessment and Plan: E coli confirmed UTI - continue ceftriaxone (4) Atrial fibrillation with RVR: Code(s): I48.91 - Unspecified atrial fibrillation Status: Acute Assessment and Plan: current rate 100 but was tachycardic earlier this morning. likely due to diarrhea and infection - Cardizem 120mg was given daily but it it was the short acting which is likely why her HR has been high. Will do 180mg long acting starting tomorrow and will do another quick acting dose of cardizem at 2pm. Continue metoprolol XL 50 mg b.i.d., and Eliquis 5 mg BID - continue tele monitor, no signs of ACS on exam and troponins are normal. 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 daily, Remeron 7.5 mg p.o. daily (8) HTN (hypertension): Code(s): I10 - Essential (primary) hypertension Status: Acute Assessment and Plan: last blood pressure 152/86 - continue metoprolol and Cardizem - continue to hold home furosemide 80 mg daily but monitor fluid status closely. She continues to have multiple episodes of diarrhea and clear lungs today, continue IV fluids (9) Hyperlipidemia: Code(s): E78.5 - Hyperlipidemia, unspecified Status: Acute Assessment and Plan: chronic, continuehome simvastatin 20 mg p.o. daily (10) Dehydration: Code(s): E86.0 - Dehydration Status: Acute Assessment and Plan: improving - continue IV fluids and holding furosemide. Monitor fluid status closely. No crackles today (11) Abnormal CT scan, lung: Code(s): R91.8 - Other nonspecific abnormal finding of lung field Status: Acute Assessment and Plan: CT showing numerous small centrilobular nodules of indeterminate chronicity scattered
[2021-02-20] MEDS: dilTIAZem HCL 30 MG TABLET PO (15:15)
[2021-02-20] MEDS: SIMVASTATIN 20 MG TABLET PO (18:38)
--- NOTE | 2021-02-20 23:10 | ECG_ITS ---
Measurements Intervals [place] Rate: 132 P: CO: 0 QRS: 26 QRSD: 96 T: -60 QT: 231 QTc: 342 Interpretive Statements ATRIAL FIBRILLATION WITH RAPID VENTRICULAR RESPONSE VENTRICULAR PREMATURE COMPLEXES ST-T WAVE ABNORMALITY IN ANTEROLATERAL LEADS- CONSIDER ISCHEMIA ABNORMAL ECG Electronically Signed On 02-21-2021 6:30:46 CDT by Iker Liu D.O.
[2021-02-21] VITALS (17 sets, daily range): BP systolic 130–150; BP diastolic 66–90; PULSE 102–155; RESP 14–18; TEMP 36.7–37.2; O2SAT 95–98
[2021-02-21] MEDS: dilTIAZem HCL CD 180 MG CAP.ER.24H PO (00:14)
[2021-02-21] MEDS: ALPRAZolam (*CRX) 0.25 MG TABLET PO ×2 (02:17→21:30)
[2021-02-21] MEDS: DIGOXIN INJ 250 MCG/ML 2 ML AMP (*BKC) 125 MCG IV PUSH (02:17)
[2021-02-21] MEDS: dilTIAZem HCl INJ 25 MG/5 ML VIAL 20 MG IV PUSH (03:55)
[2021-02-21] MEDS: METOPROLOL SUCCINATE EXT REL 50 MG TABCR PO ×2 (05:51→18:44)
[2021-02-21] MEDS: SODIUM CHLORIDE 0.9% IV 1,000 ML 100 ML IV CONT ×2 (06:13→18:44)
--- NOTE | 2021-02-21 07:01 | ECG_ITS ---
Measurements Intervals [place] Rate: 148 P: AL: 0 QRS: 32 QRSD: 93 T: -60 QT: 222 QTc: 349 Interpretive Statements ATRIAL FIBRILLATION WITH RAPID VENTRICULAR RESPONSE EARLY PRECORDIAL R/S TRANSITION ST-T WAVE ABNORMALITY IN ANTEROLATERAL LEADS- CONSIDER ISCHEMIA BASELINE ARTIFACT- III, V4-V6 ABNORMAL ECG Electronically Signed On 02-21-2021 8:14:47 CDT by Iker Liu D.O.
--- NOTE | 2021-02-21 07:14 | WPDGIPROGNO ---
Progress Note: A&P Assessment and Plan (1) Diarrhea: Qualifiers: Diarrhea type: unspecified type Qualified Code(s): R19.7 - Diarrhea, unspecified Code(s): R19.7 - Diarrhea, unspecified Status: Acute Assessment and Plan: Diarrhea apparently improving with change in medications as well as with fiber supplementation. Stool cultures pending. Consider elective colonoscopy when more stable. (2) History of colon cancer: Code(s): Z85.038 - Personal history of other malignant neoplasm of large intestine Status: Acute Assessment and Plan: Distant history of colon cancer resected in felt to be cured. CEA level currently normal. Follow-up colonoscopy electively suggested her last exam was in 2014. This will need to be deferred until she is more stable. (3) Abnormal CT scan: Code(s): R93.89 - Abnormal findings on diagnostic imaging of other specified body structures Status: Acute Assessment and Plan: CT scan suggest few nonspecific lesions in the lungs. Follow-up scanning suggested in 6 months. 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 Follow-up CT scan in 6 months suggested. (4) Atrial fibrillation with RVR: Code(s): I48.91 - Unspecified atrial fibrillation Status: Acute Assessment and Plan: Patient on anticoagulation because of atrial fibrillation. Whenever colonoscopy performed this will need to be held. (5) Acute confusion: Code(s): R41.0 - Disorientation, unspecified Status: Acute Assessment and Plan: Patient remains somewhat confused today. This limits current active workup. Subjective Date/time seen: 02/21/21 07:14 Patient is still somewhat confused this morning. She reports formation to her stools and less frequent bowel movements. Nursing staff supports this as well. No bleeding noted. No abdominal pain described. Review of Systems Review of Systems: ROS unobtainable: Yes unobtainable due to mental status Exam Narrative: Physical exam reveals patient be alert. Comfortable at rest somewhat restless today HEENT exam reveals no icterus. Lungs are clear. Heart without murmur. Abdomen is obese soft nontender with no masses evident. Objective Data Vital Signs Vital Signs: Vital Signs - 24 hr 02/20/21 08:00 02/20/21 08:04 02/20/21 12:00 Temperature Pulse Rate 133 H 120 H 105 H Respiratory Rate Blood Pressure Pulse Oximetry 02/20/21 13:44 02/20/21 16:00 02/20/21 18:38 Temperature 98.2 F Pulse Rate 116 H 139 H 130 H Respiratory Rate 18 Blood Pressure 149/84 H Pulse Oximetry 97 02/20/21 20:00 02/20/21 23:13 02/21/21 00:00 Temperature 97.6 F Pulse Rate 108 H 155 H Respiratory Rate 18 Blood Pressure 129/66 Pulse Oximetry 96 96 02/21/21 02:17 02/21/21 03:52 02/21/21 04:00 Temperature Pulse Rate 152 H 139 H 117 H Respiratory Rate Blood Pressure 137/75 Pulse Oximetry 95 02/21/21 05:51 02/21/21 06:00 Temperature 98.9 F Pulse Rate 142 H 127 H Respiratory Rate 18 Blood Pressure 148/90 H Pulse Oximetry 96 Intake/Output Intake/Output: Intake & Output 02/18/21 02/19/21 02/20/21 02/21/21 23:59 23:59 23:59 23:59 Intake Total 2275 3720 3040 1300 Output Total 700 300 Balance 2275 3720 2340 1000 Meds/Results Medications: Active Medications Generic Name Dose Route Start Last Admin Trade Name Freq PRN Reason Stop Dose Admin Alprazolam 0.25 mg 02/19/21 17:36 02/21/21 02:17 Alprazolam (*Crx) 0.25 Mg Tablet PO 0.25 mg TID PRN Administration Anxiety Apixaban 5 mg 02/20/21 21:00 02/20/21 20:24 Apixaban 5 Mg Tablet PO 5 mg Q12HR JOSE Administration Aspirin 81 mg 02/19/21 09:00 02/20/21 08:03 Aspirin 81 Mg Enteric Tablet PO 81 mg QAM JOSE Administration Calcium Polycarbophil 1,250 mg 02/19/21 17:00 02/20/21 18:39 Calcium Polycarbophil 625
[2021-02-21 07:26] LABS: Hematocrit 38.8 % (37.0-47.0); Hemoglobin 12.5 g/dL (12.0-15.0); Mean Corpuscular HGB Conc 32.2 g/dl (32-36); Mean Corpuscular Hemoglobin 27.7 pg (26-34); Platelet Count Result 241 k/mm3 (150-375); Red Blood Count 4.51 M/mm3 (4.2-5.4); White Blood Count 18.7 K/mm3 (4.5-10.0)
[2021-02-21 07:44] LABS: Anion Gap 10 mmol/L (8-16); Blood Urea Nitrogen 10 mg/dL (7-17); Calcium 9.1 mg/dL (8.4-10.2); Carbon Dioxide 19 mmol/L (22-30); Chloride 110 mmol/L (98-107); Estimated CRCL calculation 70 ml/min; Estimated Glomerular Filt Rate > 60; Glucose 133 mg/dL (65-110); Magnesium 1.9 mg/dL (1.6-2.3); Potassium 3.3 mmol/L (3.4-5.0); Sodium 139 mmol/L (137-145)
[2021-02-21 08:08] LABS: Troponin I 0.281 ng/mL (0.000-0.034)
--- NOTE | 2021-02-21 08:30 | PC.NURSE ---
This patient, Bre Ding, was transferred to IMU on 02/21/21 at 0830. Personal belongings sent with patient. Report given to TRICE Donald by TRICE Diaz. ppropriate documentation sent with patient.
--- NOTE | 2021-02-21 09:39 | PM.IMPN ---
Progress Note: A&P Assessment and Plan (1) Atrial fibrillation with RVR: Code(s): I48.91 - Unspecified atrial fibrillation Status: Acute Assessment and Plan: Pt Afib worsened overnight and had to receive 180 mg of Cardizem p.o. at midnight, 125 mcg of digoxin at 2:00 a.m., 20 mg of IV Cardizem at 3:55 a.m., and her home dose metoprolol XL 50 mg was given early at 6am -She continued to be high up to 140 and was transferred to the IMU for a Cardizem drip. Will start 10 mg an hour and monitor her blood pressures and heart rate. -If this does not control her rate may consider amiodarone since she is anticoagulated. - Cardizem 120mg was previously given daily but it it was the short acting and was switched to 180mg delayed release but she never got this since she went into worsening RVR and is now on a drip. Continue metoprolol XL 50 mg b.i.d., and Eliquis 5 mg BID -EKG likely shows strain due to elevated HR. No CP. Trops up. Order echo and repeat trops in 3 and 6 hours. monitor for CP. Will repeat EKG once HR improves. -cardiology consulted (2) Acute encephalopathy: Code(s): G93.40 - Encephalopathy, unspecified Status: Acute Assessment and Plan: Improved today but waxes and wanes. 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 Will switch to cipro + flagyl - CTA of the chest reviewed, no evidence of pneumonia such as fevers or cough. - no neurological deficits on exam. There is a history of upper extremity weakness that has apparently improved. -abd/pelvis CT without ifectious etiology -Continue PRN and oxycodone -blood cultures NGTD (3) Diarrhea: Qualifiers: Diarrhea type: unspecified type Qualified Code(s): R19.7 - Diarrhea, unspecified Code(s): R19.7 - Diarrhea, unspecified Status: Acute Assessment and Plan: patient tells me this has been going on for 3 months - she has a history of cecal cancer and has seen Dr. Al in the past - last colonoscopy that I can see was 2011 -CEA normal - await stool cultures, these were finally collected 02/19/21 - C diff less likely but possible -continue cipro + flagyl (4) Urinary tract infection: Qualifiers: Hematuria presence: without hematuria Urinary tract infection type: site unspecified Qualified Code(s): N39.0 - Urinary tract infection, site not specified Code(s): N39.0 - Urinary tract infection, site not specified Status: Acute Assessment and Plan: E coli confirmed UTI - continue cipro (5) Sepsis: Code(s): A41.9 - Sepsis, unspecified organism Status: Acute Assessment and Plan: noted on admission with a pulse rate of 100 and leukocytosis - secondary to UTI (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 daily, PRN xanax Remeron 7.5 mg p.o. daily (8) HTN (hypertension): Code(s): I10 - Essential (primary) hypertension Status: Acute Assessment and Plan: last blood pressure 148/91 - Will monitor on cardizem drip - continue to hold home furosemide 80 mg daily but monitor fluid status closely. She continues to have multiple episodes of diarrhea and clear lungs today, continue IV fluids (9) Hyperlipidemia: Code(s): E78.5 - Hyperlipidemia, unspecified Status: Acute Assessment and Plan: chronic, continuehome simvastatin 20 mg p.o. daily (10) Dehydration: Code(s): E86.0 - Dehydration Status: Acute Assessment and Plan: improving - continue IV flui
--- NOTE | 2021-02-21 09:46 | PCPTNOTE ---
PT held this morning due to patient transfer to IMU due to change in medical status. Will resume PT when medically able.
[2021-02-21] MEDS: CIPROFLOXACIN 400 MG/D5W 200ML 200 ML 200 MG IVPB ×2 (10:27→21:22)
[2021-02-21] MEDS: POTASSIUM CHLORIDE 20 MEQ TABLET 40 MEQ PO (10:28)
[2021-02-21] MEDS: ASPIRIN 81 MG ENTERIC TABLET PO (10:30)
[2021-02-21] MEDS: MIRTAZAPINE 7.5 MG TABLET PO (10:30)
[2021-02-21] MEDS: calcium polycarbophiL 625 MG TABLET 1250 MG PO ×2 (10:30→18:44)
[2021-02-21] MEDS: CITALOPRAM HYDROBROMIDE 10 MG TABLET 40 MG PO (10:30)
[2021-02-21] MEDS: APIXABAN 5 MG TABLET PO ×2 (10:30→21:27)
[2021-02-21 11:10] LABS: Troponin I 0.256 ng/mL (0.000-0.034)
--- NOTE | 2021-02-21 13:19 | PM.CNCAR ---
Assessment and Plan Additional Plan this is an 81-year-old woman with chronic atrial fibrillation due to severe mitral valve regurgitation who follows with a protozoology teacher elsewhere in made the decision a number of years ago to decline surgical repair/treatment of this. Obviously the prognosis in this situation is not good. While she is in the hospital with a variety of other issues her heart rate has become accelerated and resulting in her being transitioned to intravenous diltiazem. She remains systemically anticoagulated with apixaban. It particularly given her DNR status a very conservative approach will be taken to this. Since her renal function is normal am going to give her half a mg of oral digoxin today and consider adding this to her regimen. Since she has been placed on IV diltiazem today I will leave that run for now and anticipate transitioning her to a higher dose oral regimen tomorrow. We will follow her with you and hopefully we can bring her heart rate under better control. Shon Murillo MD [facility] History of Present Illness History of Present Illness Consult date/time: 02/21/21 13:19 Consult reason: atrial fibrillation Reason For Visit: Urinary Tract Infection, Confusion Narrative: This is an 81-year-old woman known to me prior to this encounter who is being seen this afternoon at the request of the hospitalist because of atrial fibrillation with rapid ventricular response and troponinemia. Patient is known to have mitral valve disease and chronic atrial fibrillation. She was admitted to the hospital here 3 days ago with a variety of complaints. According to the chart her initial complaint and wire family was called to her home was because of chest pain. Apparently upon arrival her complaints did not include any chest pain. She was reporting symptoms of confusion some altered mental status and diarrhea. She has been undergoing evaluation of these things by the hospitalists and by Gastroenterology service consultant. 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 She does have episodes of diarrhea off and on And so it does not seem that this is a new complaint. She does have a history of valvular heart disease and atrial fibrillation she apparently follows regularly with 1 of the cardiologists at [facility]. She has been found for at least 3 or 4 years to have atrial fibrillation her evaluation that included mitral valve regurgitation and the patient's daughter says there is a tear in the mitral valve. There was apparently consultation with the patient's protozoology teacher and cardiothoracic surgeons on at [facility]' the patient since she made the decision to decline the option of surgical repair he did not think she was strong enough to tolerate such an operation. She is being treated with diltiazem and metoprolol for heart rate control as well as apixaban for systemic anticoagulation. According to the daughter who is a better historian she is not known to have coronary artery disease. today while in the hospital it was noted that her ventricular response to the atrial fibrillation became more rapid her heart rate was up around 130 beats per minute she was taken from her previous floor to the IMU placed on intravenous diltiazem and in that setting we are consulted to see her. For some reason troponin levels were done and they are elevated at 0.2. Once again she is not having any chest pain. She is not anemic. Her renal function is normal. She has do not resuscitate orders on her chart. Review of Systems Constitutional: Constitutional: Reports fatigue and Reports lethargy Eyes: Eyes: Reports no additional eye complaints ENT: Reports system reviewed and no additional complaints, except as documented Cardiovascular: Cardiovascular: Reports palpitations Respiratory: Respiratory:
[2021-02-21] MEDS: DIGOXIN 250 MCG TABLET 500 MCG PO (14:27)
[2021-02-21] MEDS: metroNIDAZOLE 250 MG TABLET 500 MG PO ×2 (14:27→21:27)
[2021-02-21 15:06] LABS: Troponin I 0.241 ng/mL (0.000-0.034)
[2021-02-21] MEDS: SIMVASTATIN 20 MG TABLET PO (18:44)
[2021-02-22] VITALS (15 sets, daily range): BP systolic 128–150; BP diastolic 64–79; PULSE 75–201; RESP 12–20; TEMP 36.6–37.3; O2SAT 94–100
[2021-02-22] MEDS: oxyCODONE HCL (*CRX) 5 MG TAB IR PO (02:35)
[2021-02-22] MEDS: SODIUM CHLORIDE 0.9% IV 1,000 ML 100 ML IV CONT ×2 (04:26→18:37)
[2021-02-22 05:26] LABS: Basophils Absolute Auto 0.1 K/mm3 (0.0-0.1); Basophils Percent Auto 0.5 % (0.2-1.2); Eosinophils Absolute Auto 0.3 K/mm3 (0-0.3); Eosinophils Percent Auto 2.3 % (0-4.4); Hematocrit 35.9 % (37.0-47.0); Hemoglobin 11.4 g/dL (12.0-15.0); Immature Granulocyte Absolute 0.08 K/mm3 (0.00-0.031); Immature Granulocyte Percent A 0.7 % (0-0.5); Lymphocytes Absolute Auto 1.46 K/mm3 (0.9-3.2); Lymphocytes Percent Auto 13.4 % (18.3-44.2); Mean Corpuscular HGB Conc 31.8 g/dl (32-36); Mean Corpuscular Hemoglobin 27.8 pg (26-34); Mean Corpuscular Volume 87.6 fl (80-100); Mean Platelet Volume 10.3 fl (7.4-10.4); Monocytes Absolute Auto 0.8 K/mm3 (0.1-0.6); Monocytes Percent Auto 7.7 % (2.6-8.5); Neutrophils Absolute Auto 8.2 K/mm3 (1.3-6.7); Neutrophils Percent Auto 75.4 % (45.5-73.1); Platelet Count Result 189 k/mm3 (150-375); White Blood Count 10.9 K/mm3 (4.5-10.0)
[2021-02-22 05:43] LABS: Alanine Aminotransferase 29 U/L (4-35); Albumin Level 3.3 g/dL (3.5-5.1); Alkaline Phosphatase 70 U/L (38-126); Anion Gap 6 mmol/L (8-16); Aspartate Amino Transferase 31 U/L (14-36); Bilirubin,Total 1.3 mg/dL (0.2-1.3); Blood Urea Nitrogen 11 mg/dL (7-17); CRP 5.3 mg/dL (<1.0); Calcium 8.9 mg/dL (8.4-10.2); Carbon Dioxide 21 mmol/L (22-30); Chloride 113 mmol/L (98-107); Estimated CRCL calculation 61 ml/min; Estimated Glomerular Filt Rate > 60; Glucose 117 mg/dL (65-110); Sodium 140 mmol/L (137-145)
[2021-02-22] MEDS: metroNIDAZOLE 250 MG TABLET 500 MG PO ×3 (06:59→21:34)
--- NOTE | 2021-02-22 07:33 | ECG_ITS ---
Measurements Intervals [place] Rate: 85 P: IN: 0 QRS: 15 QRSD: 90 T: -25 QT: 352 QTc: 419 Interpretive Statements ATRIAL FIBRILLATION NONSPECIFIC ST & T-WAVE ABNORMALITY- ANTEROLAT/INF LEADS BASELINE ARTIFACT- V2 ABNORMAL ECG Electronically Signed On 02-22-2021 8:11:50 CDT by Iker Liu D.O.
[2021-02-22] MEDS: POTASSIUM CHLORIDE 20 MEQ PACKET (FOR LIQUID) 40 MEQ PO (08:40)
[2021-02-22] MEDS: CITALOPRAM HYDROBROMIDE 10 MG TABLET 40 MG PO (08:42)
[2021-02-22] MEDS: calcium polycarbophiL 625 MG TABLET 1250 MG PO ×2 (08:43→18:38)
[2021-02-22] MEDS: METOPROLOL SUCCINATE EXT REL 50 MG TABCR PO ×2 (08:43→14:09)
[2021-02-22] MEDS: MIRTAZAPINE 7.5 MG TABLET PO (08:44)
[2021-02-22] MEDS: ASPIRIN 81 MG ENTERIC TABLET PO (08:44)
[2021-02-22] MEDS: APIXABAN 5 MG TABLET PO ×2 (08:45→20:47)
[2021-02-22] MEDS: CIPROFLOXACIN 400 MG/D5W 200ML 200 ML 200 MG IVPB ×2 (08:57→20:26)
--- NOTE | 2021-02-22 11:39 | PM.PNCARD ---
Progress Note: A&P Assessment and Plan (1) Atrial fibrillation with RVR: Code(s): I48.91 - Unspecified atrial fibrillation Status: Acute Assessment and Plan: Heart rate better controlled. Transition off IV diltiazem. Increase Toprol XL to 100 mg daily. Give an additional 50 mg p.o. Toprol XL x1 now. Reduce diltiazem to 5 milligrams/hour and then discontinue 30 minutes later. Monitor heart rate on telemetry. Further recommendation to follow based on heart rate control. Monitor electrolytes closely. Continue systemic anticoagulation. Monitor for bleeding. Eliquis 5 mg b.i.d.. (2) Elevated troponin: Code(s): R77.8 - Other specified abnormalities of plasma proteins Status: Acute Assessment and Plan: Not acute coronary syndrome or acute plaque rupture. Mild troponin elevation in setting of AFib with RVR. Patient previously declined workup for mitral valve repair in the past. Conservative management in this regard. Continue anticoagulation. Continue simvastatin. (3) Hypokalemia: Code(s): E87.6 - Hypokalemia Status: Acute Assessment and Plan: Replete potassium to keep around 4.0. Agree with supplementation as ordered. Check electrolytes in a.m.. (4) HTN (hypertension): Code(s): I10 - Essential (primary) hypertension Status: Acute Assessment and Plan: Stable, no acute issues at this time. Patient has not been hypotensive. (5) Diarrhea: Qualifiers: Diarrhea type: unspecified type Qualified Code(s): R19.7 - Diarrhea, unspecified Code(s): R19.7 - Diarrhea, unspecified Status: Acute Assessment and Plan: Per primary service. Improving. Monitor electrolytes closely. (6) Urinary tract infection: Qualifiers: Hematuria presence: without hematuria Urinary tract infection type: site unspecified Qualified Code(s): N39.0 - Urinary tract infection, site not specified Code(s): N39.0 - Urinary tract infection, site not specified Status: Acute Assessment and Plan: Management per primary service. Anticipate with improvement in her infectious picture AFib will be better managed. Subjective Date/time seen: Date of service: 02/22/21 11:39 Follow-up for atrial fibrillation with rapid ventricular response. Patient feels better. Denies palpitations currently. No shortness of breath or chest pain. Still feels somewhat weak but improving since admission. Patient heart rate improved after IV digoxin, diltiazem and oral metoprolol. Review of Systems Review of Systems: All systems reviewed & are unremarkable except as noted in HPI and below Constitutional: Constitutional: Reports as per HPI and Reports fatigue Eyes: Eyes: Reports as per HPI and Reports no additional eye complaints ENT: Reports system reviewed and no additional complaints, except as documented and Reports as per HPI Cardiovascular: Cardiovascular: Reports as per HPI, Denies chest pain and Denies palpitations Respiratory: Respiratory: Reports as per HPI, Reports no additional respiratory complaints and Denies dyspnea Gastrointestinal: Gastrointestinal: Reports as per HPI, Reports abdominal pain, Denies melena, Denies hematochezia and Reports diarrhea Genitourinary: Genitourinary: Reports as per HPI Musculoskeletal: Musculoskeletal: Reports no additional musculoskeletal complaints and Reports as per HPI Integumentary/Breasts: Skin/Breast: Reports as per HPI Neurologic: Reports as per HPI Endocrine: Endocrine: Reports no additional endocrine complaints, Reports as per HPI, Reports fatigue and Reports palpitations Hematologic/Lymphatic: Hematologic/Lymphatic: Reports no additional hematologic/lymphatic complaints and Reports as per HPI Allergic/Immunologic: Allergic/Immunologic: Reports no additional allergic/immunologic complaints Exam Const: General: comfortable and no acute distress Other: elderly white female overweig
--- NOTE | 2021-02-22 11:47 | PM.IMPN ---
Progress Note: A&P Assessment and Plan (1) Atrial fibrillation with RVR: Code(s): I48.91 - Unspecified atrial fibrillation Status: Acute Assessment and Plan: HR now controlled with the IV Cardizem and EKG changes seen yesterday have resolved with todays EKG -Cardiology is adjusting his medications; increasing metoprolol to 100mg daily and reducing diltiazem to 5mg/hour and plan to d/c that if she does well on this -no CP noted -Continue Eliquis (2) Acute encephalopathy: Code(s): G93.40 - Encephalopathy, unspecified Status: Acute Assessment and Plan: Resolved but does wax and wane. 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 - no neurological deficits on exam. There is a history of upper extremity weakness that has apparently improved. -abd/pelvis CT without infectious etiology -Will restart home oxycontin but at a lower dose. -blood cultures NGTD (3) Diarrhea: Qualifiers: Diarrhea type: unspecified type Qualified Code(s): R19.7 - Diarrhea, unspecified Code(s): R19.7 - Diarrhea, unspecified Status: Acute Assessment and Plan: Resolved -patient tells me this has been going on for 3 months - she has a history of cecal cancer and has seen Dr. Al in the past - last colonoscopy that I can see was 2011 -CEA normal -Stool cultures partially back, no etiology noted so far -continue cipro + flagyl (4) Urinary tract infection: Qualifiers: Hematuria presence: without hematuria Urinary tract infection type: site unspecified Qualified Code(s): N39.0 - Urinary tract infection, site not specified Code(s): N39.0 - Urinary tract infection, site not specified Status: Acute Assessment and Plan: E coli confirmed UTI - continue cipro (5) Sepsis: Code(s): A41.9 - Sepsis, unspecified organism Status: Acute Assessment and Plan: Resolved - noted on admission with a pulse rate of 100 and leukocytosis - secondary to UTI (6) 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 daily, PRN xanax Remeron 7.5 mg p.o. daily (8) HTN (hypertension): Code(s): I10 - Essential (primary) hypertension Status: Acute Assessment and Plan: last blood pressure 143/71 -continue metoprolol - continue to hold home furosemide 80 mg daily but monitor fluid status closely. She seems slightly dry on exam. Hopefully these can be stopped soon since her diarrhea is letting up. (9) Hyperlipidemia: Code(s): E78.5 - Hyperlipidemia, unspecified Status: Acute Assessment and Plan: chronic, continuehome simvastatin 20 mg p.o. daily (10) Dehydration: Code(s): E86.0 - Dehydration Status: Acute Assessment and Plan: improving - continue IV fluids and holding furosemide. Monitor fluid status closely. No crackles today (11) Abnormal CT scan, lung: Code(s): R91.8 - Other nonspecific abnormal finding of lung field Status: Acute Assessment and Plan: CT showing numerous small centrilobular nodules of indeterminate chronicity scattered throughout both lungs which are most likely infectious or inflammatory in etiology. Would also include metastatic disease in the differential if there is been history of prior malignancy. -no signs of PNA on exam -hx of colon cancer, will need repeat colonoscopy but CEA neg -will need to be up to date on mammogram -w
[2021-02-22] MEDS: SIMVASTATIN 20 MG TABLET PO (18:39)
[2021-02-22] MEDS: ALPRAZolam (*CRX) 0.25 MG TABLET PO (21:34)
[2021-02-22] MEDS: oxyCODONE HCL (*CRX) 10 MG TAB SR 12HR PO (21:34)
[2021-02-23] VITALS (16 sets, daily range): BP systolic 127–158; BP diastolic 77–99; PULSE 79–128; RESP 16–20; TEMP 36.8–37.1; O2SAT 97–100
[2021-02-23] MEDS: SODIUM CHLORIDE 0.9% IV 1,000 ML 100 ML IV CONT ×2 (01:14→12:00)
[2021-02-23] MEDS: metroNIDAZOLE 250 MG TABLET 500 MG PO ×3 (05:30→20:12)
[2021-02-23 05:32] LABS: Hematocrit 35.3 % (37.0-47.0); Hemoglobin 11.5 g/dL (12.0-15.0); Mean Corpuscular HGB Conc 32.6 g/dl (32-36); Mean Corpuscular Hemoglobin 28.3 pg (26-34); Mean Corpuscular Volume 86.7 fl (80-100); Mean Platelet Volume 10.3 fl (7.4-10.4); Platelet Count Result 199 k/mm3 (150-375); Red Blood Count 4.07 M/mm3 (4.2-5.4)
[2021-02-23 05:43] LABS: Anion Gap 6 mmol/L (8-16); Blood Urea Nitrogen 9 mg/dL (7-17); Calcium 8.9 mg/dL (8.4-10.2); Carbon Dioxide 21 mmol/L (22-30); Chloride 114 mmol/L (98-107); Estimated CRCL calculation 72 ml/min; Estimated Glomerular Filt Rate > 60; Glucose 95 mg/dL (65-110); Magnesium 1.9 mg/dL (1.6-2.3); Potassium 3.1 mmol/L (3.4-5.0); Sodium 141 mmol/L (137-145)
[2021-02-23] MEDS: MIRTAZAPINE 7.5 MG TABLET PO (10:26)
[2021-02-23] MEDS: calcium polycarbophiL 625 MG TABLET 1250 MG PO ×2 (10:26→18:21)
[2021-02-23] MEDS: METOPROLOL SUCCINATE EXT REL 25 MG TABCR 75 MG PO ×2 (10:26→18:21)
[2021-02-23] MEDS: APIXABAN 5 MG TABLET PO ×2 (10:27→20:05)
[2021-02-23] MEDS: CITALOPRAM HYDROBROMIDE 10 MG TABLET 40 MG PO (10:27)
[2021-02-23] MEDS: ASPIRIN 81 MG ENTERIC TABLET PO (10:27)
[2021-02-23] MEDS: oxyCODONE HCL (*CRX) 10 MG TAB SR 12HR PO (10:37)
[2021-02-23] MEDS: CIPROFLOXACIN 400 MG/D5W 200ML 200 ML 200 MG IVPB ×2 (10:37→19:54)
[2021-02-23] MEDS: POTASSIUM CHLORIDE 20 MEQ TABLET ×2 (12:00)
--- NOTE | 2021-02-23 12:24 | PM.PNCARD ---
Progress Note: A&P Assessment and Plan (1) Atrial fibrillation with RVR: Code(s): I48.91 - Unspecified atrial fibrillation Status: Acute Assessment and Plan: Heart rate fair control but tachycardic at times particular patient becomes agitated her more active off IV diltiazem. resume home diltiazem 120 mg daily. Monitor heart rate on telemetry. Further recommendation to follow based on heart rate control. Monitor electrolytes closely. Continue systemic anticoagulation. Monitor for bleeding. Eliquis 5 mg b.i.d.. (2) Elevated troponin: Code(s): R77.8 - Other specified abnormalities of plasma proteins Status: Acute Assessment and Plan: Not acute coronary syndrome or acute plaque rupture. Mild troponin elevation in setting of AFib with RVR. Patient previously declined workup for mitral valve repair in the past. Conservative management in this regard. Continue anticoagulation. Continue simvastatin. Remains on low-dose aspirin 81 mg daily. Would favor discontinuation while on systemic anticoagulation with Eliquis within 30 days post discharge. (3) Hypokalemia: Code(s): E87.6 - Hypokalemia Status: Acute Assessment and Plan: Replete potassium to keep around 4.0. Patient declined potassium supplementation yesterday. Agree with supplementation as ordered. Check electrolytes in a.m.. (4) HTN (hypertension): Code(s): I10 - Essential (primary) hypertension Status: Acute Assessment and Plan: Stable, no acute issues at this time. Patient has not been hypotensive. (5) Diarrhea: Qualifiers: Diarrhea type: unspecified type Qualified Code(s): R19.7 - Diarrhea, unspecified Code(s): R19.7 - Diarrhea, unspecified Status: Acute Assessment and Plan: Per primary service. Improving. Monitor electrolytes closely. (6) Urinary tract infection: Qualifiers: Hematuria presence: without hematuria Urinary tract infection type: site unspecified Qualified Code(s): N39.0 - Urinary tract infection, site not specified Code(s): N39.0 - Urinary tract infection, site not specified Status: Acute Assessment and Plan: Management per primary service. Anticipate with improvement in her infectious picture AFib will be better managed. (7) Delirium: Code(s): R41.0 - Disorientation, unspecified Status: Acute Assessment and Plan: Per primary service. Workup pending. Minimize psychotropic and or anxiolytics medications which may contribute. Subjective Date/time seen: Date of service: 02/23/21 12:24 Follow-up for atrial fibrillation with rapid ventricular response Patient loosening, more confused overnight and this morning. Describes watching a parade margin past her. Patient respond to certain questions with tangential answers requiring redirection frequently. Patient in no distress denies chest pain or shortness of breath or palpitations. Heart rate more rapid at times particularly overnight. Review of Systems Review of Systems: All systems reviewed & are unremarkable except as noted in HPI and below Constitutional: Constitutional: Reports as per HPI and Reports fatigue Eyes: Eyes: Reports as per HPI and Reports no additional eye complaints ENT: Reports system reviewed and no additional complaints, except as documented and Reports as per HPI Cardiovascular: Cardiovascular: Reports as per HPI, Denies chest pain, Denies palpitations and Denies dyspnea Respiratory: Respiratory: Reports as per HPI, Reports no additional respiratory complaints and Denies dyspnea Gastrointestinal: Gastrointestinal: Reports as per HPI, Reports abdominal pain, Denies melena, Denies hematochezia and Reports diarrhea Genitourinary: Genitourinary: Reports as per HPI Musculoskeletal: Musculoskeletal: Reports no additional musculoskeletal complaints and Reports as per HPI Integumentary/Breasts: Skin/Breast: Reports as
--- NOTE | 2021-02-23 13:18 | PM.IMPN ---
Progress Note: A&P Assessment and Plan (1) Atrial fibrillation with RVR: Code(s): I48.91 - Unspecified atrial fibrillation Status: Acute Assessment and Plan: HR controlled with the IV Cardizem, now on oral cardizem and metoprolol -no CP noted -Continue Eliquis -potassium low again today but after speaking with RN, her potassium supplementation was not given yesterday and I was not notified. Will replaced with 40meq today. - if she remains rate controlled throughout the day, she can be transferred out of IMU later today (2) Acute encephalopathy: Code(s): G93.40 - Encephalopathy, unspecified Status: Acute Assessment and Plan: Waxes and wanes, worse after 7pm -could be due to lack of sleep. Pt family would like the xanax and oxycontin restarted. This could be why she isn't sleeping well. 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 - no neurological deficits on exam. There is a history of upper extremity weakness that has apparently improved. -abd/pelvis CT without infectious etiology -blood cultures NGTD (3) Diarrhea: Qualifiers: Diarrhea type: unspecified type Qualified Code(s): R19.7 - Diarrhea, unspecified Code(s): R19.7 - Diarrhea, unspecified Status: Acute Assessment and Plan: Resolved -patient tells me this has been going on for 3 months - she has a history of cecal cancer and has seen Dr. Al in the past - last colonoscopy that I can see was 2011 -CEA normal -Stool cultures partially back, no etiology noted so far -continue cipro + flagyl (4) Urinary tract infection: Qualifiers: Hematuria presence: without hematuria Urinary tract infection type: site unspecified Qualified Code(s): N39.0 - Urinary tract infection, site not specified Code(s): N39.0 - Urinary tract infection, site not specified Status: Acute Assessment and Plan: E coli confirmed UTI - continue cipro (5) Sepsis: Code(s): A41.9 - Sepsis, unspecified organism Status: Acute Assessment and Plan: Resolved - noted on admission with a pulse rate of 100 and leukocytosis - secondary to UTI (6) 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 daily, PRN xanax Remeron 7.5 mg p.o. daily (8) HTN (hypertension): Code(s): I10 - Essential (primary) hypertension Status: Acute Assessment and Plan: last blood pressure 127/77 -continue metoprolol and Cardizem - continue to hold home furosemide 80 mg daily but monitor fluid status closely. (9) Hyperlipidemia: Code(s): E78.5 - Hyperlipidemia, unspecified Status: Acute Assessment and Plan: chronic, continuehome simvastatin 20 mg p.o. daily (10) Dehydration: Code(s): E86.0 - Dehydration Status: Acute Assessment and Plan: improved. Stop fluids. Continue to hold furosemide (11) Abnormal CT scan, lung: Code(s): R91.8 - Other nonspecific abnormal finding of lung field Status: Acute Assessment and Plan: CT showing numerous small centrilobular nodules of indeterminate chronicity scattered throughout both lungs which are most likely infectious or inflammatory in etiology. Would also include metastatic disease in the differential if there is been history of
[2021-02-23] MEDS: SIMVASTATIN 10 MG TABLET PO (18:22)
[2021-02-23 18:46] LABS: Glucose Point of Care 128 mg/dl (65-105)
[2021-02-23] MEDS: oxyCODONE HCL (*CRX) 5 MG TAB IR PO (20:05)
[2021-02-23] MEDS: ALPRAZolam (*CRX) 0.25 MG TABLET PO (20:05)
[2021-02-23] MEDS: MELATONIN 3 MG TABLET PO (20:05)
[2021-02-24] VITALS (10 sets, daily range): BP systolic 109–150; BP diastolic 44–90; PULSE 78–111; RESP 18–22; TEMP 35.8–37; O2SAT 94–100
[2021-02-24 05:15] LABS: Hematocrit 38.9 % (37.0-47.0); Hemoglobin 12.3 g/dL (12.0-15.0); Mean Corpuscular HGB Conc 31.6 g/dl (32-36); Mean Corpuscular Hemoglobin 27.9 pg (26-34); Mean Corpuscular Volume 88.2 fl (80-100); Mean Platelet Volume 10.2 fl (7.4-10.4); Platelet Count Result 222 k/mm3 (150-375); Red Blood Count 4.41 M/mm3 (4.2-5.4); Red Cell Distribution Width 15.2 % (11.5-14.5); White Blood Count 11.3 K/mm3 (4.5-10.0)
[2021-02-24 05:28] LABS: Anion Gap 7 mmol/L (8-16); Blood Urea Nitrogen 11 mg/dL (7-17); Carbon Dioxide 22 mmol/L (22-30); Chloride 112 mmol/L (98-107); Estimated CRCL calculation 62 ml/min; Estimated Glomerular Filt Rate > 60; Glucose 103 mg/dL (65-110); Potassium 3.4 mmol/L (3.4-5.0); Sodium 141 mmol/L (137-145)
[2021-02-24] MEDS: metroNIDAZOLE 250 MG TABLET 500 MG PO ×2 (06:23→14:55)
[2021-02-24] MEDS: CITALOPRAM HYDROBROMIDE 10 MG TABLET 40 MG PO (09:23)
[2021-02-24] MEDS: oxyCODONE HCL (*CRX) 10 MG TAB SR 12HR PO (09:23)
[2021-02-24] MEDS: POTASSIUM CHLORIDE 20 MEQ TABLET PO (09:23)
[2021-02-24] MEDS: CIPROFLOXACIN 400 MG/D5W 200ML 200 ML 200 MG IVPB (09:23)
[2021-02-24] MEDS: METOPROLOL SUCCINATE EXT REL 25 MG TABCR 75 MG PO (09:23)
[2021-02-24] MEDS: APIXABAN 5 MG TABLET PO (09:24)
[2021-02-24] MEDS: calcium polycarbophiL 625 MG TABLET 1250 MG PO (09:24)
[2021-02-24] MEDS: ASPIRIN 81 MG ENTERIC TABLET PO (09:24)
[2021-02-24] MEDS: MIRTAZAPINE 7.5 MG TABLET PO (09:24)
--- NOTE | 2021-02-24 12:15 | PM.PNCARD ---
Progress Note: A&P Assessment and Plan (1) Atrial fibrillation with RVR: Code(s): I48.91 - Unspecified atrial fibrillation <JESUS ALBERTO Quiros - Last Filed: 02/24/21 17:12> Status: Acute <JESUS ALBERTO Quiros - Last Filed: 02/24/21 17:12> Assessment and Plan: Heart rate fair control but tachycardic at times particular patient becomes agitated her more active off IV diltiazem. resume home diltiazem 120 mg daily. Monitor heart rate on telemetry. Further recommendation to follow based on heart rate control. Monitor electrolytes closely. Continue systemic anticoagulation. Monitor for bleeding. Eliquis 5 mg b.i.d.. <JESUS ALBERTO Quiros - Last Filed: 02/24/21 17:12> (2) Elevated troponin: Code(s): R77.8 - Other specified abnormalities of plasma proteins <JESUS ALBERTO Quiros - Last Filed: 02/24/21 17:12> Status: Acute <JESUS ALBERTO Quiros - Last Filed: 02/24/21 17:12> Assessment and Plan: Not acute coronary syndrome or acute plaque rupture. Mild troponin elevation in setting of AFib with RVR. Patient previously declined workup for mitral valve repair in the past. Conservative management in this regard. Continue anticoagulation. Continue simvastatin. Remains on low-dose aspirin 81 mg daily. Would favor discontinuation while on systemic anticoagulation with Eliquis within 30 days post discharge. <JESUS ALBERTO Quiros - Last Filed: 02/24/21 17:12> (3) Hypokalemia: Code(s): E87.6 - Hypokalemia <JESUS ALBERTO Quiros - Last Filed: 02/24/21 17:12> Status: Acute <JESUS ALBERTO Quiros - Last Filed: 02/24/21 17:12> Assessment and Plan: Replete potassium to keep around 4.0. Patient declined potassium supplementation yesterday. Agree with supplementation as ordered. Check electrolytes in a.m.. <JESUS ALBERTO Quiros - Last Filed: 02/24/21 17:12> (4) HTN (hypertension): Code(s): I10 - Essential (primary) hypertension <JESUS ALBERTO Quiros - Last Filed: 02/24/21 17:12> Status: Acute <SVETLANA QuirosC - Last Filed: 02/24/21 17:12> Assessment and Plan: Stable, no acute issues at this time. Patient has not been hypotensive. <JESUS ALBERTO Quiros - Last Filed: 02/24/21 17:12> (5) Diarrhea: Qualifiers: Diarrhea type: unspecified type Qualified Code(s): R19.7 - Diarrhea, unspecified <SVETLANA QuirosC - Last Filed: 02/24/21 17:12> Code(s): R19.7 - Diarrhea, unspecified <SVETLANA QuirosC - Last Filed: 02/24/21 17:12> Status: Acute <SVETLANA QuirosC - Last Filed: 02/24/21 17:12> Assessment and Plan: Per primary service. Improving. Monitor electrolytes closely. <JESUS ALBERTO Quiros - Last Filed: 02/24/21 17:12> (6) Urinary tract infection: Qualifiers: Hematuria presence: without hematuria Urinary tract infection type: site unspecified Qualified Code(s): N39.0 - Urinary tract infection, site not specified <JESUS ALBERTO Quiros - Last Filed: 02/24/21 17:12> Code(s): N39.0 - Urinary tract infection, site not specified <SVETLANA QuirosC - Last Filed: 02/24/21 17:12> Status: Acute <JSEUS ALBERTO Quiros - Last Filed: 02/24/21 17:12> Assessment and Plan: Management per primary service. Anticipate with improvement in her infectious picture AFib will be better managed. <JESUS ALBERTO Quiros - Last Filed: 02/24/21 17:12> (7) Delirium: Code(s): R41.0 - Disorientation, unspecified <JESUS ALBERTO Quiros - Last Filed: 02/24/21 17:12> Status: Acute <JESUS ALBERTO Quiros - Last Filed: 02/24/21 17:12> Assessment and Plan: Per primary service. Workup pending. Minimize psychotropic and or anxiolytics medications which may contribute. <JESUS ALBERTO Quiros - Last Filed: 02/24/21 17:12> Additional Plan Attending addendum
--- NOTE | 2021-02-24 12:21 | WPDGIPROGNO ---
Progress Note: A&P Assessment and Plan (1) Diarrhea: Qualifiers: Diarrhea type: unspecified type Qualified Code(s): R19.7 - Diarrhea, unspecified Code(s): R19.7 - Diarrhea, unspecified Status: Acute Assessment and Plan: Patient states diarrhea improving. Plan to continue fiber. Patient on antibiotics for urinary tract infection. stool cultures are negative to date. Duration of diarrhea suggests this is not infectious in etiology. Hopefully fiber supplementation will help. She has had prior partial colectomy which could contribute to diarrhea as well. 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 This could PA and I PMN. Agree with follow-up MRCP 1 year. (4) Abnormal CT scan, lung: Code(s): R91.8 - Other nonspecific abnormal finding of lung field Status: Acute (5) History of colon cancer: Code(s): Z85.038 - Personal history of other malignant neoplasm of large intestine Status: Acute Assessment and Plan: Patient has a distant history of colon carcinoma resection. Follow-up CEA level currently normal. Patient would likely benefit from follow-up surveillance colonoscopy when her other medical problems are more stable. Perhaps this can be done as an outpatient. Anticoagulation should be held at with this is required. (6) Atrial fibrillation with RVR: Code(s): I48.91 - Unspecified atrial fibrillation Status: Acute Assessment and Plan: Patient with Eliquis anticoagulation because of atrial fibrillation (7) Urinary tract infection: Qualifiers: Hematuria presence: without hematuria Urinary tract infection type: site unspecified Qualified Code(s): N39.0 - Urinary tract infection, site not specified Code(s): N39.0 - Urinary tract infection, site not specified Status: Acute Assessment and Plan: patient admitted with UTI. This likely contributes to her confusion noted intermittently. Subjective Date/time seen: 02/24/21 12:21 Patient alert this morning. Still not a very good historian. She reports that diarrhea is improving. Does not wake her up sleep. Review of Systems Review of Systems: All systems reviewed & are unremarkable except as noted in HPI and below Exam Narrative: Patient tolerating diet. Get a report that diarrhea peers improved. On physical exam there is vital signs appears stable. Lungs are clear. Heart without murmur. Abdomen is soft tenderness appreciated. No organomegaly. Objective Data Vital Signs Vital Signs: Vital Signs - 24 hr 02/23/21 14:00 02/23/21 16:00 02/23/21 18:00 Temperature 98.3 F Pulse Rate 102 H 91 107 H Respiratory Rate 18 Blood Pressure 139/82 Pulse Oximetry 98 02/23/21 18:21 02/23/21 19:45 02/23/21 20:00 Temperature 98.4 F Pulse Rate 91 90 100 Respiratory Rate 19 19 Blood Pressure 154/95 H Pulse Oximetry 100 100 02/23/21 22:00 02/23/21 23:41 02/24/21 00:00 Temperature 98.6 F Pulse Rate 79 90 79 Respiratory Rate 20 20 Blood Pressure 154/99 H Pulse Oximetry 100 100 02/24/21 02:00 02/24/21 04:00 02/24/21 06:00 Temperature 98.6 F Pulse Rate 82 111 H 78 Respiratory Rate 18 Blood Pressure 150/90 H Pulse Oximetry 94 02/24/21 08:00 02/24/21 08:27 02/24/21 10:00 Temperature 96.5 F L Pulse Rate 88 93 91 Respiratory Rate 22 H Blood Pressure 109/44 L Pulse Oximetry 99 Intake/Output Intake/Output: Intake & Output 02/21/21 02/22/21 02/23/21 02/24/21 23:59 23:59 23:59 23:59 Intake Total 3830 4020 3065 150 Output Total 900 1600 2600 1190 Balance 2930 2420 465 -1040 Meds/Results Medications: Active Medications Generic Name Dose Rout
--- NOTE | 2021-02-24 14:03 | PM.DS ---
DS: Admitting Diagnosis Admitting Diagnosis ams, diarrhea, uti DS: Discharge Diagnosis Discharge Diagnosis (1) Atrial fibrillation with RVR: Code(s): I48.91 - Unspecified atrial fibrillation Status: Acute Assessment and Plan: Controlled on oral cardizem and metoprolol (increased) -no CP noted -Continue Eliquis (2) Acute encephalopathy: Code(s): G93.40 - Encephalopathy, unspecified Status: Acute Assessment and Plan: Waxes and wanes, worse after 7pm -could be due to lack of sleep. Pt family would like the xanax and oxycontin restarted. This could be why she isn't sleeping well. These were restarted and she slept fine without hallucinations or signs of withdraw. -I spoke with daughter and did mention this could be signs of early Dementia and to monitor symptoms after discharge. I called her 02/26 and Pts daughter states she is doing well and does not have any further hallucinations. 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 - no neurological deficits on exam. There is a history of upper extremity weakness that has apparently improved. -abd/pelvis CT without infectious etiology -blood cultures negative (3) Diarrhea: Qualifiers: Diarrhea type: unspecified type Qualified Code(s): R19.7 - Diarrhea, unspecified Code(s): R19.7 - Diarrhea, unspecified Status: Acute Assessment and Plan: Resolved -patient tells me this has been going on for 3 months - she has a history of cecal cancer and has seen Dr. Al in the past - last colonoscopy that I can see was 2011 -CEA normal -Stool cultures partially back, no etiology noted so far -continue cipro + flagyl -colonoscopy outpt (4) Urinary tract infection: Qualifiers: Hematuria presence: without hematuria Urinary tract infection type: site unspecified Qualified Code(s): N39.0 - Urinary tract infection, site not specified Code(s): N39.0 - Urinary tract infection, site not specified Status: Acute Assessment and Plan: E coli confirmed UTI - finished cipro (5) Sepsis: Code(s): A41.9 - Sepsis, unspecified organism Status: Acute Assessment and Plan: Resolved - noted on admission with a pulse rate of 100 and leukocytosis - secondary to UTI (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 daily, PRN xanax Remeron 7.5 mg p.o. daily (8) HTN (hypertension): Code(s): I10 - Essential (primary) hypertension Status: Acute Assessment and Plan: last blood pressure 110/47 -continue metoprolol and Cardizem - change home lasix to 40mg daily (9) Hyperlipidemia: Code(s): E78.5 - Hyperlipidemia, unspecified Status: Acute Assessment and Plan: chronic, continuehome simvastatin 20 mg p.o. daily (10) Dehydration: Code(s): E86.0 - Dehydration Status: Acute Assessment and Plan: improved. Stop fluids. Continue to hold furosemide (11) Abnormal CT scan, lung: Code(s): R91.8 - Other nonspecific abnormal finding of lung field Status: Acute Assessment and Plan: CT showing numerous small centrilobular nodules of indeterminate chronicity scattered throughout both lungs which are most likely infectious or inflammatory in etiology. Would also include metastatic disease in the differential if there is been history of prior malignancy. -no signs of PNA on exam -hx of colon cancer, will need repeat colonoscopy but CEA ne
--- NOTE | 2021-02-27 13:32 | PC.NURSE ---
Blood cx are negative Campylobacter is negative
[2021-03-05 15:32] LABS: Rotavirus Stool Not Detected
--- NOTE | 2021-03-11 13:32 | PC.NURSE ---
Ova and parasites are negative. Rota/norovirus are negative.
== END 2021-02-24 15:12 | disposition home or self-care (01) | DRG 872 ==
LOC: ANHED 02-18 02:06 → ANH3MEDSUR 02-18 02:46 → ANHIMU 02-24 14:03 → ANH3MEDSUR 02-27 11:01 → ANHIMU 02-27 11:01
PROVIDERS: Emergency Medicine; Nurse Practitioner; Physician Assistant; Admitting Provider Internal Medicine; Emergency Provider Emergency Medicine; PCP Nurse Practitioner Adult Health; Visit Provider Student in an Organized Health Care Education/Training Program
DX: A41.9 Sepsis, unspecified organism (principal); N39.0 Urinary tract infection, site not specified; G93.40 Encephalopathy, unspecified; B96.20 Unspecified Escherichia coli [E. coli] as the cause of diseases classified elsewhere; R77.8 Other specified abnormalities of plasma proteins; R91.8 Other nonspecific abnormal finding of lung field; R93.89 Abnormal findings on diagnostic imaging of other specified body structures; E87.6 Hypokalemia; R09.02 Hypoxemia; F41.9 Anxiety disorder, unspecified; M54.5 Low back pain; R19.7 Diarrhea, unspecified; I10 Essential (primary) hypertension; I48.91 Unspecified atrial fibrillation; I34.0 Nonrheumatic mitral (valve) insufficiency; E86.0 Dehydration; E78.5 Hyperlipidemia, unspecified; Z66 Do not resuscitate; Z79.01 Long term (current) use of anticoagulants; Z79.899 Other long term (current) drug therapy; Z85.038 Personal history of other malignant neoplasm of large intestine
CPT/HCPCS: 36415; 36600; 51701; 70450; 70551; 71045; 71275; 74177; 80048; 80053; 80061; 80076; 81001; 82378; 82805; 82948; 83605; 83735; 84484; 85025; 85027; 85380; 85610; 85730; 86140; 87015; 87040; 87045; 87046; 87077; 87086; 87088; 87177; 87186; 87209; 87269; 87272; 87425; 87427; 87798; 89055; 93005; 93880; 96361; 96365; 96366; 97110; 97116; 97161; 97164; 97165; 97168; 97530; 97535; 99285; A9270; G0378; J0696; J0744; J1160; J7030; Q9967

== ENCOUNTER 2021-03-03 14:49 | Emergency (ER) | payer MEDICARE, SELFPAY ==
--- NOTE | ~2021-03-03 | XR_ITS ---
EXAMINATION: XR chest 2V 03/03/2021 15:22 INDICATION: Cough PROCEDURE: 2 view chest COMPARISON: 02/21/2021 FINDINGS: The lungs are clear. The cardiomediastinal silhouette is within normal limits. There are no pleural effusions. There is no pneumothorax suspected. Chronically elevated right diaphragm. IMPRESSION: 1: NO ACUTE CARDIOPULMONARY DISEASE. Reviewed, dictated and finalized at location A.
[2021-03-03 15:02] VITALS: BP 120/53; PULSE 66; RESP 16; TEMP 36.2; O2SAT 97
--- NOTE | 2021-03-03 15:52 | ED.URI ---
HPI - URI/Sore Throat General Chief Complaint: Upper Respiratory Infection Stated Complaint: cough Source: patient and RN notes reviewed Limitations: no limitations History of Present Illness HPI Narrative: The vaccinated patient, a non-smoker/nondrinker with a recent hospitalization, presents with cough. Patient is on multiple meds and was hospitalized till a week ago on IV Cipro for a UTI associated also with confusion. She now has 1/2-week history of nonproductive cough; no frequency/dysuria, fever, CP, wheezing, loss of taste/smell, S OB, precordial chest pain, vomiting/diarrhea. Symptoms are mild, somewhat worse at night. Screening chest x-ray is noncontributory today. Related Data Home Medications Medication Instructions Recorded Confirmed Eliquis 5 mg PO DAILY 02/17/21 02/18/21 citalopram 40 mg PO DAILY 02/17/21 02/18/21 diltiazem HCl 120 mg PO DAILY 02/17/21 02/18/21 metoprolol succinate 50 mg PO BID 02/17/21 02/18/21 mirtazapine 7.5 mg PO DAILY 02/17/21 02/18/21 simvastatin 20 mg PO QPM 02/17/21 02/18/21 oxycodone 5 mg PO DAILY 02/19/21 02/19/21 Allergies Allergy/AdvReac Type Severity Reaction Status Date / Time No Known Allergies Allergy Unknown Verified 02/17/21 23:39 Review of Systems Review of Systems: General/Constitutional: No weight loss,fever Eyes: N0: Redness,discharge Ears/Nose/Throat: No: Epistaxis,ear discharge Respiratory: Denies: Hemoptysis Gastrointestinal: No Vomiting, Bleeding-rectal Skin: No Lumps, eruption Neurologic: No Focal Weakness,Sz Hematologic: Denies: Petechiae/Purpura Psychiatric: No: Suicida ideationl All Other Systems: Reviewed and Negative PMFSH Social History Social History Smoking status: Never smoker Alcohol intake: never Substance use: never Gender identity (if verbalized by the patient): Female Spiritual care concerns: No Comments At time of signature, agree with nursing past medical, surgical, social and family history. There is no relevant family history pertinent to the presenting complaint Exam Narrative: General Appearance: Overweight/well nourished, no distress EYE: PERRLA, Conjunctiva clear Ears: External ear normal Nose: Normal nose Mouth/Throat: Normal appearing, Normal lips Neck: Supple Respiratory: Airway patent, No respiratory distress, CTA, decreased BS at bases Cardiovascular: no JVD Abdomen: Soft, Non-tender, Musculoskeletal: Full ROM Skin: Warm, Dry Neurological: A&O x3, CN II-X intact Psychiatric: Normal mood, Normal affect Course Course Emergency Course: Films visualized, interpreted by radiologist, agree, normal see report Vital Signs Vital signs: Vital Signs Temperature 97.1 F L 03/03/21 15:02 Pulse Rate 66 03/03/21 15:02 Respiratory Rate 16 03/03/21 15:02 Blood Pressure 120/53 L 03/03/21 15:02 Pulse Oximetry 97 03/03/21 15:02 Temperature 97.1 F L 03/03/21 15:02 Pulse Rate 66 03/03/21 15:02 Respiratory Rate 16 03/03/21 15:02 Blood Pressure 120/53 L 03/03/21 15:02 Pulse Oximetry 97 03/03/21 15:02 MDM - URI/Sore Throat Lab Data Labs: Lab Results 03/03/21 Range/Units 15:44 POC SARS CoV-2 Ag Negative (Negative) Discharge Plan Discharge Clinical Impression: Cough Patient Disposition: Home, Self-Care Condition: Stable Instructions: Acute Bronchitis (ED) Prescriptions: New codeine-guaifenesin 10-100 mg/5 mL liquid 7.5 ml PO Q6H PRN (Reason: cough) Qty: 118 RF: 0 azelastine 137 mcg (0.1 %) aerosol,spray 137 mcg NASAL Q12H Qty: 30 RF: 0 benzonatate [Tessalon Perles] 100 mg capsule 100 mg PO TID Qty: 20 RF: 1 albuterol sulfate [Ventolin HFA] 90 mcg/actuation HFA aerosol inhaler 2 puff INHALATION QID PRN (Reason: shortness of breath or wheezing) Qty: 8.5 RF: 1 No Action citalopram 40 mg tablet 40 mg PO DAILY RF: 0 metoprolol succinate 50 mg tablet e
== END 2021-03-03 16:19 | disposition home or self-care (01) ==
PROVIDERS: Emergency Provider Emergency Medicine; PCP Nurse Practitioner Adult Health
DX: R05 Cough (principal); Z20.822 Contact with and (suspected) exposure to COVID-19; I48.91 Unspecified atrial fibrillation; E78.00 Pure hypercholesterolemia, unspecified; I10 Essential (primary) hypertension; I34.9 Nonrheumatic mitral valve disorder, unspecified; Z85.038 Personal history of other malignant neoplasm of large intestine; Z96.653 Presence of artificial knee joint, bilateral; H26.9 Unspecified cataract; H35.30 Unspecified macular degeneration
CPT/HCPCS: 71046; 87426; 99213; C9803; G0463

== ENCOUNTER 2021-07-25 12:24 | Outpatient (CLI) | payer MEDICARE, SELFPAY ==
--- NOTE | ~2021-07-25 | XR_ITS ---
EXAMINATION: XR shoulder RT min 2V DATE: 07/25/2021 13:29 INDICATION: Right shoulder pain. Fall. TECHNIQUE: 4 views of right shoulder were obtained. COMPARISON: None. FINDINGS: Bone alignment is normal. No fracture. There is moderate osteoarthritis of glenohumeral stacy nt and severe osteoarthritis of acromioclavicular joint. IMPRESSION: 1. Polyarticular osteoarthritis. Reviewed, dictated and finalized at location A. RMATION SECURITY MANAGER
--- NOTE | ~2021-07-25 | MR_ITS ---
EXAMINATION: MR lumbar spine wo con DATE: 07/25/2021 13:17 INDICATION: Low back pain. TECHNIQUE: Magnetic resonance imaging (MRI) of the lumbar spine was performed without intravenous con trast. Sequences included sagittal T2-weighted FSE, sagittal T2-weighted FS FSE, sagittal T1-weighted FSE, and axial T2-weighted FSE. COMPARISON: None FINDINGS: 9 mm anterolisthesis L5 on S1. 2 mm anterolisthesis L3 on L4. Vertebral body heights are normal. Mild marrow edema associated with a small Schmorl's node along the superior endplate of L4. Severe disc h eight loss with degenerative endplate remodeling at L5-S1. Mild to moderate disc height loss at L3-L4 and L4-L5 and mild disc height loss at L2-L3. The conus medullaris terminates at L1-L2. There is nor mal signal in the caudal spinal cord. Paravertebral soft tissues are unremarkable. The following disc levels are specifically discussed: T12-L1: Disc is mildly bulging. There is mild right and mild left facet joint osteoarthritis. There i s no neural foraminal stenosis. There is no central canal stenosis. L1-L2: Disc is mildly bulging. There is moderate bilateral facet joint osteoarthritis. There is no ne ural foraminal stenosis. There is no central canal stenosis. L2-L3: Disc is bulging. There is hypertrophy of the ligamentum flavum. There is moderate left and sev ere right facet joint osteoarthritis. There is mild bilateral neural foraminal stenosis. There is mil d central canal stenosis. L3-L4: Disc is bulging with annular fissure and small central disc extrusion with disc material exten ding a few millimeters cephalad to the level of the inferior endplate of L3. There is hypertrophy of the ligamentum flavum. There is severe bilateral facet joint osteoarthritis. There is moderate bilate ral neural foraminal stenosis. There is mild to moderate central canal stenosis with additional narro wing of the left and right lateral recesses. L4-L5: Disc is bulging with annular fissure. There is severe bilateral facet joint osteoarthritis. Th ere is moderate right and mild to moderate left neural foraminal stenosis. There is no central canal stenosis. L5-S1: Annular fissure with broad-based disc extrusion extending from foraminal zone to foraminal zon e with disc material extending up to 7 mm cephalad to the level of the inferior endplate of L5. Bilat eral pars interarticularis defects. There is severe bilateral facet joint osteoarthritis. There is se julio bilateral neural foraminal stenosis. There is mild central canal stenosis. IMPRESSION: 1. L5 spondylolysis with bilateral pars intra-articular is defects, 9 mm anterolisthesis on S1 and se julio bilateral facet osteoarthritis contributing to severe bilateral neural foraminal stenosis. 2. Less severe mild to moderate spondylosis in the more cephalad lumbar spine. Reviewed, dictated and finalized at location B. ESS TRACK VEHICLE SUPERVISOR IMPRESSION: 1. L5 spondylolysis with bilateral pars intra-articular is defects, 9 mm mio listhesis on S1 and severe bilateral facet osteoarthritis contributing to sever e bilateral neural foraminal stenosis. 2. Less severe mild to moderate spondylosis in the more cephalad lumbar spine.
== END 2021-07-25 12:25 | disposition home or self-care (01) ==
PROVIDERS: PCP Nurse Practitioner Adult Health; Visit Provider Nurse Practitioner Family
DX: M47.896 Other spondylosis, lumbar region (principal); M19.011 Primary osteoarthritis, right shoulder
CPT/HCPCS: 72148; 73030

== ENCOUNTER → 2023-03-24 16:11 | Outpatient (CLI) | payer MEDICARE, SELFPAY ==
--- NOTE | ~2023-03-24 | US_ITS ---
Renal-Bladder ultrasound Clinical History: Abnormal renal function studies Technique: Real-time sonographic imaging of the kidneys and urinary bladder was performed. Findings: The right kidney measures 10.8 cm in length and the left kidney measures 9.9 cm. There is n o hydronephrosis or renal calculus identified. Renal cortical echogenicity is probably mildly increas ed. Small bilateral renal cysts noted. The urinary bladder is moderately distended at the time of this exam. No intraluminal echoes are iden tified. No abnormal wall thickening is seen. Impression: Mild increased renal echogenicity suggest chronic medical renal disease. No hydronephrosis. Reviewed, dictated and finalized at location M. Impression: Mild increased renal echogenicity suggest chronic medical renal disease. No hyd ronephrosis.
== END ==
PROVIDERS: PCP Family Medicine; Visit Provider Internal Medicine Nephrology
DX: R94.4 Abnormal results of kidney function studies (principal)
CPT/HCPCS: 76775

== ENCOUNTER 2024-06-05 13:25 | Outpatient (CLI) | payer MEDICARE, SELFPAY ==
--- NOTE | ~2024-06-05 | CT_ITS ---
EXAMINATION: CT brain wo con DATE: 06/05/2024 14:13 INDICATION: Other amnesia. TECHNIQUE: Computed tomography (CT) of the head was performed without intravenous contrast. The mA wa s adjusted according to patient size. Iterative reconstruction technique was employed. The dose-lengt h product was 605.33 mGy-cm. COMPARISON: Head CT 02/17/2021 FINDINGS: There are scattered areas of low attenuation in the cerebral white matter and thalami. Ther e is no intracranial hemorrhage, acute infarction, or abnormal intracranial mass lesion. The ventricl es are normal in size. There are likely changes of ocular lens replacement surgeries. There is mild m ucosal thickening in the paranasal sinuses. The mastoid air cells are normal. IMPRESSION: 1. Stable extensive nonspecific cerebral white matter disease and disease of the thalami, which likel y represents chronic small vessel ischemic disease. Reviewed, dictated and finalized at location A. MANAGER IMPRESSION: 1. Stable extensive nonspecific cerebral white matter disease and disease of th e thalami, which likely represents chronic small vessel ischemic disease.
== END 2024-06-05 13:26 | disposition home or self-care (01) ==
PROVIDERS: PCP Nurse Practitioner Family; Visit Provider Nurse Practitioner Family
DX: R41.3 Other amnesia (principal); R90.82 White matter disease, unspecified
CPT/HCPCS: 70450